=== PATIENT | female | born 1945 | race Caucasian/White ===

== ENCOUNTER 2016-02-24 17:09 | Outpatient (RCR) | payer MEDICARE ==
--- OUTSIDE RECORDS SUMMARY | 2015-12-02 11:14 | XMS REPORT | Continuity of Care Document ---
Author Author [facility] Organization [facility] Address Unknown Phone Unavailable Care Team Providers Care Communications Billing Analyst Name Role Phone Sebastian Ma PCP [phone] Source Comments Some departments are not documenting in the electronic medical record. If you do not see the information that you expected, contact Release of Information in the Health Information Management department at [phone] for further assistance in locating additional records.[facility] Active Allergies and Adverse Reactions No Known Allergies Current Medications Prescription Sig. Disp. Refills Start End Date Status Date atenolol (TENORMIN) 100 Take 100 mg by mouth Active mg tablet daily. amLODIPine (NORVASC) 5 mg Take 5 mg by mouth daily. Active tablet atorvastatin (LIPITOR) 20 Take 20 mg by mouth Active mg tablet daily. cholecalciferol (Vitamin Take 1,000 Units by mouth Active D3) (VITAMIN D-3) 1,000 daily. units tablet aspirin EC 81 mg tablet Take 81 mg by mouth Active daily. oxyCODone (ROXICODONE) 5 Take 1-2 Tabs by mouth 30 Tab 0 03/25/19 Active mg tablet every 6 hours as needed 14 for Pain Earliest Fill Date: 03/25/13 ondansetron (ZOFRAN) 4 mg Take 1 Tab by mouth every 30 Tab 2 03/25/19 Active tablet 8 hours as needed for 14 Nausea. metoclopramide HCl Take 1 Tab by mouth every 30 Tab 3 03/25/19 Active (REGLAN) 10 mg tablet 6 hours. 14 polyethylene glycol 3350 Take 17 g by mouth twice 3 Bottle 2 03/25/19 Active (GLYCOLAX; MIRALAX) 17 daily. 14 gram/dose powder senna/docusate Take 2 Tabs by mouth 30 Tab 3 03/25/19 Active (SENOKOT-S) 8.6/50 mg twice daily. 14 tablet traMADol (ULTRAM) 50 mg Take 1 Tab by mouth every 30 Tab 0 03/27/19 Active tablet 6 hours as needed for 14 Pain. Active Problems Problem Noted Date Colon cancer (HCC) 03/11/2013 Overview: Ms. Long is a 67 year old female who in January 2009 was found to have multiple polyps in the left colon on colonoscopy. In January 2009 she underwent left laparascopic colectomy with Dr. Rodriguez at [facility]. Pathology showed a tumor in the left colon 3 x 2.5 x 1.6cm revealing low grade well or moderately differentiated adenocarcinoma with invasion through the muscularis propria into the subserosa with invasion greater than 5mm beyond the border of the muscularis propria. Proximal and distal margins were uninvolved by tumor. None of the lymph nodes were positive for malignancy (0 of 18). PET was performed at that time with some increased activity along the suture line which was believed to be due to recent surgery. She has been followed by an Oncologist in [place] since that time. Recent PET scan on 12/31/12 has revealed a hypermetabolic lesion within the spleen on the anteromedial aspect. Recent colonoscopy was performed on 02/17/13 with evidence of a tubular adenoma in the cecum, confirmed by pathology. Recent CEA is elevated at 9.2 on 01/29/13. She was referred by Dr. Martin in [place] for further evaluation for elevated CEA and hypermetabolic lesion on PET with history of colon cancer. Social History Tobacco Use Types Packs/Day Years Used Date Never Smoker Smokeless Tobacco: Never Used Alcohol Use Drinks/Week oz/Week Comments Yes 14 Cans of 8.4 beer Last Filed Vital Signs Vital Sign Reading Time Taken Blood Pressure 143/64 04/02/2013 4:02 PM [employer] Pulse 74 04/02/2013 4:02 PM [employer] Temperature 36.7 C (98 F) 04/02/2013 4:02 PM [employer] Respiratory Rate - - Height 1.575 m (5' 2") 04/02/2013 4:02 PM [employer] Weight 74.934 kg (165 lb 3.2 oz) 04/02/2013 4:02 PM [employer] Body Mass Index 30.21 04/02/2013 4:02 PM [employer] Oxygen Saturation 98% 04/02/2013 4:02 PM [employer] Plan of Care Health Maintenance Due Date Last Done Comments Hepatitis C Screening 1945 Physical (Comprehensive) 1952 Exam Pertussis Vaccine 1956 Tetanus Vaccine 1962 Breast Cancer Screening 1985 Colorectal Cancer 11/16/1995 Screening Shingles Vaccine 2005 Osteoporosis Screening 2010 Prevnar/Pneumovax (#1) 2010 Influenza Vaccine 10/14/2015 Results from Last 3 Months Not on file
[2015-12-02 11:56] LABS: ALANINE AMINOTRANSFERASE 22 U/L (0-55); ANION GAP 9 MMOL/L (5-14); ASPARTATE AMINO TRANSFERASE 18 U/L (5-34); BILIRUBIN,TOTAL 0.5 MG/DL (0.1-1.0); BLOOD UREA NITROGEN 17 MG/DL (7-18); BUN/CREATININE RATIO 21; CALCIUM 9.5 MG/DL (8.5-10.1); CARBON DIOXIDE 25 MMOL/L (21-32); CHLORIDE 100 MMOL/L (98-107); CREATININE SERUM 0.81 MG/DL (0.60-1.30); GFR ESTIMATED > 60; GLUCOSE 82 MG/DL (70-105); POTASSIUM 4.3 MMOL/L (3.6-5.0); SODIUM 134 MMOL/L (135-145); TOTAL PROTEIN 7.1 G/DL (6.4-8.2)
[2015-12-02 12:27] LABS: BASOPHILS # (AUTO) 0.1 10^3/uL (0.0-0.1); BASOPHILS % (AUTO) 1 % (0-10); EOSINOPHILS # (AUTO) 0.3 10^3/uL (0.0-0.3); EOSINOPHILS % (AUTO) 3 % (0-10); LYMPHOCYTES # (AUTO) 2.1 X 10^3 (1.0-4.0); LYMPHOCYTES % (AUTO) 24 % (12-44); MEAN CORPUSCULAR HEMOGLOBIN 33 PG (25-34); MEAN CORPUSCULAR HGB CONC 34 G/DL (32-36); MEAN CORPUSCULAR VOLUME 95 FL (80-99); MEAN PLATELET VOLUME 11.2 FL (7.4-10.4); MONOCYTES # (AUTO) 1.4 X 10^3 (0.0-1.0); MONOCYTES % (AUTO) 16 % (0-12); NEUTROPHILS # (AUTO) 4.8 X 10^3 (1.8-7.8); NEUTROPHILS % (AUTO) 56 % (42-75); PLATELET COUNT 298 10^3/uL (130-400); RED BLOOD COUNT 4.36 10^6/uL (4.35-5.85); RED CELL DISTRIBUTION WIDTH 12.9 % (10.0-14.5); WHITE BLOOD COUNT 8.6 10^3/uL (4.3-11.0)
[2016-02-17 11:17] LABS: BASOPHILS # (AUTO) 0.1 10^3/uL (0.0-0.1); BASOPHILS % (AUTO) 1 % (0-10); EOSINOPHILS # (AUTO) 0.2 10^3/uL (0.0-0.3); EOSINOPHILS % (AUTO) 3 % (0-10); LYMPHOCYTES # (AUTO) 1.9 X 10^3 (1.0-4.0); LYMPHOCYTES % (AUTO) 25 % (12-44); MEAN CORPUSCULAR HEMOGLOBIN 33 PG (25-34); MEAN CORPUSCULAR HGB CONC 35 G/DL (32-36); MEAN CORPUSCULAR VOLUME 96 FL (80-99); MEAN PLATELET VOLUME 10.5 FL (7.4-10.4); MONOCYTES # (AUTO) 1.2 X 10^3 (0.0-1.0); MONOCYTES % (AUTO) 16 % (0-12); NEUTROPHILS # (AUTO) 4.2 X 10^3 (1.8-7.8); NEUTROPHILS % (AUTO) 55 % (42-75); PLATELET COUNT 305 10^3/uL (130-400); RED CELL DISTRIBUTION WIDTH 13.4 % (10.0-14.5); WHITE BLOOD COUNT 7.6 10^3/uL (4.3-11.0)
[2016-02-17 12:02] LABS: ALANINE AMINOTRANSFERASE 21 U/L (0-55); ALBUMIN 4.1 G/DL (3.2-4.5); ANION GAP 8 MMOL/L (5-14); ASPARTATE AMINO TRANSFERASE 21 U/L (5-34); BILIRUBIN,TOTAL 0.5 MG/DL (0.1-1.0); BLOOD UREA NITROGEN 13 MG/DL (7-18); BUN/CREATININE RATIO 17; CALCIUM 8.9 MG/DL (8.5-10.1); CARBON DIOXIDE 23 MMOL/L (21-32); CHLORIDE 104 MMOL/L (98-107); CREATININE SERUM 0.78 MG/DL (0.60-1.30); GFR ESTIMATED > 60; GLUCOSE 82 MG/DL (70-105); POTASSIUM 4.5 MMOL/L (3.6-5.0); SODIUM 135 MMOL/L (135-145); TOTAL PROTEIN 7.2 G/DL (6.4-8.2)
[~2016-02-24 17:09] MED LIST: AMLO5TAB2 PO; ASP81TEC PO; ATEN100T88 PO; ATEN1TAB3; ATR20T PO; CHOL400T43 PO; ESTR1TAB24; FLU TRIvalent (5 YOA+) 2016-17 (CANCER CTR) 0.5 ML IM ONE; GABA-488 PO; SIMV20TA3; VICODIN 5/325 PO
== END 2016-03-01 | disposition home or self-care (01) ==
LOC: ONC 17:09
PROVIDERS: ATTEND Internal Medicine Hematology & Oncology
DX: C78.89 Secondary malignant neoplasm of other digestive organs (principal); Z85.038 Personal history of other malignant neoplasm of large intestine; E55.9 Vitamin D deficiency, unspecified; Z90.49 Acquired absence of other specified parts of digestive tract; Z79.899 Other long term (current) drug therapy; Z45.2 Encounter for adjustment and management of vascular access device
CPT/HCPCS: 36591; 80053; 82378; 85025; 90471; 96523; 99213

== ENCOUNTER → 2016-05-30 | Outpatient (CLI) | payer MEDICARE ==
[~2016-05-30] MED LIST changes: -FLU TRIvalent (5 YOA+) 2016-17 (CANCER CTR) 0.5 ML IM ONE
--- NOTE | 2016-05-31 13:04 | ECHOCARDIOGRAPHY REPORT ---
PROCEDURE PHYSICIAN: JAYJAY MARIN DATE OF PROCEDURE: 05/30/2016 TWO DIMENSIONAL ECHOCARDIOGRAM REPORT PRIMARY PHYSICIAN: Dr. Ma OTHER PHYSICIAN: REFERRING PHYSICIAN: ORDERING PHYSICIAN: Dr. Marin INDICATION FOR THE PROCEDURE: 1. Shortness of breath. 2. Near syncope. MEASUREMENTS DERIVED VALUES LV DIAMETER (LAX) NORMALS NORMALS Diastolic 4.2 (3.6-5.2) Eject. Fract. (60%+/-6%) Systolic (2.3-3.9) Diastolic Vol. % Shortening (0.22-0.42) Systolic Vol. Aortic Root 2.7 IVS THICKNESS Diastolic 1.1 (0.6-1.1) LVPW THICKNESS Diastolic 1 (0.6-1.1) LA DIAMETER Systolic 4.1 (2.1-3.7) DESCRIPTION: Two-dimensional echocardiography shows normal global left ventricular systolic function without any regional wall motion abnormality. Aortic, mitral and tricuspid valve leaflets show good leaflet excursion. There is no significant pericardial effusion. There appears to be mild aortic valve sclerosis. Aortic valve appears to be trileaflet. Doppler imaging shows mild pulmonic and tricuspid regurgitation. Doppler imaging shows mild mitral regurgitation. There is no Doppler evidence of significant valvular stenosis. Pulmonary artery systolic pressure is estimated to be approximately 40 to 45 mmHg. Mild aortic regurgitation is seen on Doppler imaging. The left ventricular ejection fraction is approximately 60%. There is no evidence of significant intracardiac shunt on this transthoracic echocardiographic study. Inferior vena cava does appear to have inspiratory collapse. CONCLUSIONS: 1. Normal global left ventricular systolic function with an ejection fraction of approximately 60%. 2. Mild tricuspid, pulmonic, aortic and mitral regurgitation. 3. Mild aortic valve sclerosis without evidence of any significant valvular stenosis. 4. Pulmonary artery systolic pressure is estimated to be 40 to 45 mmHg. Job ID: [id number] Dictated Date: 05/30/2016 15:24:50 Finish Rolls Operator Date: 05/31/2016 12:56:44 / tbk
== END ==
LOC: CARD 11:31
PROVIDERS: ATTEND Internal Medicine Cardiovascular Disease
DX: R55 Syncope and collapse (principal); R06.02 Shortness of breath
CPT/HCPCS: 93306

== ENCOUNTER 2016-06-22 10:35 | Outpatient (RCR) | payer MEDICARE ==
--- OUTSIDE RECORDS SUMMARY | 2016-03-29 13:40 | XMS REPORT | Continuity of Care Document ---
Author Author [facility] Organization [facility] Address Unknown Phone Unavailable Care Team Providers Care Antiquer Name Role Phone Sebastian Ma PCP [phone] Source Comments Some departments are not documenting in the electronic medical record. If you do not see the information that you expected, contact Release of Information in the Health Information Management department at [phone] for further assistance in locating additional records.[facility] Active Allergies and Adverse Reactions No [...] left laparascopic colectomy with Dr. Rodriguez at [facility]. Pathology showed a tumor in the [...] has been followed by an Oncologist in [place] since that time. Recent PET scan on 12/31/12 has revealed a hypermetabolic lesion within the spleen on the anteromedial aspect. Recent colonoscopy was performed on 02/17/13 with evidence of a tubular adenoma in the cecum, confirmed by pathology. Recent CEA is elevated at 9.2 on 01/29/13. She was referred by Dr. Martin in [place] for further evaluation for elevated CEA and hypermetabolic lesion on PET with history of colon cancer. 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
[2016-05-11 10:56] LABS: BASOPHILS # (AUTO) 0.1 10^3/uL (0.0-0.1); BASOPHILS % (AUTO) 1 % (0-10); EOSINOPHILS # (AUTO) 0.1 10^3/uL (0.0-0.3); EOSINOPHILS % (AUTO) 1 % (0-10); LYMPHOCYTES # (AUTO) 2.1 X 10^3 (1.0-4.0); LYMPHOCYTES % (AUTO) 24 % (12-44); MEAN CORPUSCULAR HEMOGLOBIN 33 PG (25-34); MEAN CORPUSCULAR HGB CONC 34 G/DL (32-36); MEAN CORPUSCULAR VOLUME 96 FL (80-99); MEAN PLATELET VOLUME 10.4 FL (7.4-10.4); MONOCYTES # (AUTO) 1.4 X 10^3 (0.0-1.0); MONOCYTES % (AUTO) 16 % (0-12); NEUTROPHILS # (AUTO) 5.2 X 10^3 (1.8-7.8); NEUTROPHILS % (AUTO) 59 % (42-75); PLATELET COUNT 289 10^3/uL (130-400); RED BLOOD COUNT 4.22 10^6/uL (4.35-5.85); WHITE BLOOD COUNT 8.9 10^3/uL (4.3-11.0)
[2016-05-11 11:42] LABS: ALANINE AMINOTRANSFERASE 17 U/L (0-55); ALBUMIN 3.8 G/DL (3.2-4.5); ANION GAP 5 MMOL/L (5-14); ASPARTATE AMINO TRANSFERASE 18 U/L (5-34); BILIRUBIN,TOTAL 0.5 MG/DL (0.1-1.0); BLOOD UREA NITROGEN 17 MG/DL (7-18); BUN/CREATININE RATIO 20; CALCIUM 9.1 MG/DL (8.5-10.1); CARBON DIOXIDE 27 MMOL/L (21-32); CHLORIDE 102 MMOL/L (98-107); CREATININE SERUM 0.87 MG/DL (0.60-1.30); GFR ESTIMATED > 60; GLUCOSE 74 MG/DL (70-105); POTASSIUM 4.6 MMOL/L (3.6-5.0); SODIUM 134 MMOL/L (135-145); TOTAL PROTEIN 6.9 G/DL (6.4-8.2)
== END 2016-06-27 | disposition home or self-care (01) ==
LOC: ONC 10:35
PROVIDERS: ATTEND Internal Medicine Hematology & Oncology
DX: C78.89 Secondary malignant neoplasm of other digestive organs (principal); Z85.038 Personal history of other malignant neoplasm of large intestine; E55.9 Vitamin D deficiency, unspecified; Z90.49 Acquired absence of other specified parts of digestive tract; Z79.899 Other long term (current) drug therapy
CPT/HCPCS: 36591; 80053; 82306; 82378; 84443; 85025; 99213

== ENCOUNTER 2016-10-26 12:45 | Outpatient (RCR) | payer MEDICARE ==
[2016-08-03 11:44] LABS: BASOPHILS # (AUTO) 0.1 10^3/uL (0.0-0.1); BASOPHILS % (AUTO) 1 % (0-10); EOSINOPHILS # (AUTO) 0.2 10^3/uL (0.0-0.3); EOSINOPHILS % (AUTO) 2 % (0-10); LYMPHOCYTES % (AUTO) 21 % (12-44); MEAN CORPUSCULAR HEMOGLOBIN 34 PG (25-34); MEAN CORPUSCULAR HGB CONC 34 G/DL (32-36); MEAN CORPUSCULAR VOLUME 98 FL (80-99); MEAN PLATELET VOLUME 10.3 FL (7.4-10.4); MONOCYTES # (AUTO) 1.5 X 10^3 (0.0-1.0); MONOCYTES % (AUTO) 16 % (0-12); NEUTROPHILS # (AUTO) 5.6 X 10^3 (1.8-7.8); NEUTROPHILS % (AUTO) 60 % (42-75); PLATELET COUNT 289 10^3/uL (130-400); RED BLOOD COUNT 3.96 10^6/uL (4.35-5.85); RED CELL DISTRIBUTION WIDTH 12.6 % (10.0-14.5); WHITE BLOOD COUNT 9.4 10^3/uL (4.3-11.0)
[2016-08-03 11:58] LABS: ALANINE AMINOTRANSFERASE 17 U/L (0-55); ALBUMIN 3.7 GM/DL (3.2-4.5); ANION GAP 7 MMOL/L (5-14); ASPARTATE AMINO TRANSFERASE 18 U/L (5-34); BILIRUBIN,TOTAL 0.5 MG/DL (0.1-1.0); BLOOD UREA NITROGEN 15 MG/DL (7-18); BUN/CREATININE RATIO 19 (0-20); CALCIUM 9.1 MG/DL (8.5-10.1); CARBON DIOXIDE 25 MMOL/L (21-32); CHLORIDE 102 MMOL/L (98-107); CREATININE SERUM 0.79 MG/DL (0.60-1.30); GFR ESTIMATED > 60; GLUCOSE 82 MG/DL (70-105); HEMOLYSIS 13 (-100-29); ICTERUS 1.3 (-100-1.9); LIPEMIA 8 (-100-49); POTASSIUM 4.4 MMOL/L (3.6-5.0); SODIUM 134 MMOL/L (135-145)
== END 2016-11-01 | disposition home or self-care (01) ==
LOC: ONC 12:45
PROVIDERS: ATTEND Internal Medicine Hematology & Oncology
DX: Z79.899 Other long term (current) drug therapy; E55.9 Vitamin D deficiency, unspecified; Z85.038 Personal history of other malignant neoplasm of large intestine; C78.89 Secondary malignant neoplasm of other digestive organs; Z45.2 Encounter for adjustment and management of vascular access device; Z90.49 Acquired absence of other specified parts of digestive tract
CPT/HCPCS: 36591; 80053; 82378; 85025; 96523; 99213

== ENCOUNTER → 2016-12-12 | Outpatient (CLI) | payer MEDICARE ==
[2016-12-12 10:34] LABS: THYROID STIMULATING HORMONE 1.36 UIU/ML (0.35-4.94)
== END ==
LOC: LAB 12-11 11:35
DX: R53.83 Other fatigue (principal); E78.5 Hyperlipidemia, unspecified
CPT/HCPCS: 36415; 80061; 84443

== ENCOUNTER → 2016-12-27 | Outpatient (CLI) | payer MEDICARE ==
--- NOTE | 2016-12-27 15:15 | Diagnostic Imaging Report ---
PROCEDURE: MRI left joint lower extremity without contrast. TECHNIQUE: Multiplanar, multisequence non contrast-enhanced MRI of the left lower extremity was accomplished. INDICATION: Left knee pain. FINDINGS: There is no significant joint effusion. No popliteal cyst. The extensor mechanism appears intact. The ACL and PCL are intact. There is increased signal in the substance of the posterior horn of the medial meniscus extending to the posterior aspect of the body of the meniscus with suggestion of extension into the undersurface of the meniscus suggestive of a nondisplaced tear. The lateral meniscus is intact. There is slight edema deep to the MCL which may relate to minimal sprain. No interruption of the MCL fibers or significant tear is suggested. Lateral collateral ligament complex appear intact. Marginal osteophytes at the medial compartment are seen and there is suggestion of 50-75% cartilage thinning in the medial compartment. There is mild cartilage thinning in the lateral facet of the patella with subchondral focal edema in the patella seen. The cartilage in the lateral compartment is preserved. IMPRESSION: 1. Moderate degenerative changes in the medial compartment and minimal degenerative changes in the patellofemoral compartment. 2. There is mild edema deep to the MCL which could be secondary to irritation from the adjacent spur formation versus a mild sprain. No significant MCL tear. 3. Suggestion of a nondisplaced medial meniscus tear. Dictated by: Dictated on workstation # [id number]
== END ==
LOC: RAD 06:48
PROVIDERS: ATTEND Nurse Practitioner Family
DX: M17.12 Unilateral primary osteoarthritis, left knee (principal)
CPT/HCPCS: 73721

== ENCOUNTER 2017-02-07 12:48 | Outpatient (CLI) | payer MEDICARE ==
[~2017-02-07] VITALS: Ht 157.5 cm; Wt 75.3 kg
[2017-02-07] MEDS ORDERED: ASPI-586 PO (13:18)
[2017-02-07] MEDS ORDERED: ATEN50TA PO (13:18)
[2017-02-07] MEDS ORDERED: CALC-250 PO (13:18)
[2017-02-07] MEDS ORDERED: ASCO500T5 PO (13:18)
[2017-02-07] MEDS ORDERED: ATOR20TA66 PO (13:18)
== END 2017-02-07 13:35 ==
LOC: PREOP 12:48
PROVIDERS: ATTEND Orthopaedic Surgery
DX: Z01.818 Encounter for other preprocedural examination (principal); M23.204 Derangement of unspecified medial meniscus due to old tear or injury, left knee

== ENCOUNTER 2017-03-06 10:20 | Outpatient (RCR) | payer MEDICARE ==
[2016-12-12 09:52] LABS: BASOPHILS # (AUTO) 0.1 10^3/uL (0.0-0.1); BASOPHILS % (AUTO) 1 % (0-10); EOSINOPHILS # (AUTO) 0.2 10^3/uL (0.0-0.3); EOSINOPHILS % (AUTO) 4 % (0-10); HEMATOCRIT 42 % (35-52); HEMOGLOBIN 14.2 G/DL (11.5-16.0); LYMPHOCYTES # (AUTO) 1.8 X 10^3 (1.0-4.0); LYMPHOCYTES % (AUTO) 29 % (12-44); MEAN CORPUSCULAR HEMOGLOBIN 33 PG (25-34); MEAN CORPUSCULAR HGB CONC 34 G/DL (32-36); MEAN CORPUSCULAR VOLUME 96 FL (80-99); MEAN PLATELET VOLUME 11.2 FL (7.4-10.4); MONOCYTES # (AUTO) 0.9 X 10^3 (0.0-1.0); MONOCYTES % (AUTO) 15 % (0-12); NEUTROPHILS # (AUTO) 3.1 X 10^3 (1.8-7.8); NEUTROPHILS % (AUTO) 51 % (42-75); PLATELET COUNT 291 10^3/uL (130-400); RED BLOOD COUNT 4.34 10^6/uL (4.35-5.85); RED CELL DISTRIBUTION WIDTH 12.4 % (10.0-14.5); WHITE BLOOD COUNT 6.1 10^3/uL (4.3-11.0)
[2016-12-12 10:11] LABS: ALANINE AMINOTRANSFERASE 17 U/L (0-55); ALBUMIN 3.8 GM/DL (3.2-4.5); ALKALINE PHOSPHATASE 59 U/L (40-136); BILIRUBIN,TOTAL 0.5 MG/DL (0.1-1.0); BUN/CREATININE RATIO 29; CALCIUM 9.1 MG/DL (8.5-10.1); CARBON DIOXIDE 22 MMOL/L (21-32); CHLORIDE 106 MMOL/L (98-107); CREATININE SERUM 0.77 MG/DL (0.60-1.30); GFR ESTIMATED > 60; GLUCOSE 108 MG/DL (70-105); POTASSIUM 4.4 MMOL/L (3.6-5.0); SODIUM 137 MMOL/L (135-145); TOTAL PROTEIN 6.8 GM/DL (6.4-8.2)
[~2017-03-06 10:20] MED LIST changes: +ASCO500T5 PO; +ASPI-586 PO; +ATEN50TA PO; +ATOR20TA66 PO; +CALC-250 PO
== END 2017-03-12 | disposition home or self-care (01) ==
LOC: ONC 10:20
PROVIDERS: ATTEND Internal Medicine Hematology & Oncology
DX: C78.89 Secondary malignant neoplasm of other digestive organs (principal); Z85.038 Personal history of other malignant neoplasm of large intestine; E55.9 Vitamin D deficiency, unspecified; Z90.49 Acquired absence of other specified parts of digestive tract; Z79.899 Other long term (current) drug therapy
CPT/HCPCS: 36591; 80053; 82378; 85025; 96523; 99213

== ENCOUNTER 2017-03-26 05:39 | Outpatient (CLI) | payer MEDICARE ==
[~2017-03-26] VITALS: Ht 157.5 cm; Wt 75.3 kg
[2017-03-26] MEDS ORDERED: MONT10TA24 PO (09:42)
== END 2017-03-26 10:28 ==
LOC: PREOP 05:39
PROVIDERS: ATTEND Orthopaedic Surgery
DX: Z01.818 Encounter for other preprocedural examination (principal); M23.204 Derangement of unspecified medial meniscus due to old tear or injury, left knee

== ENCOUNTER 2017-03-28 06:27 | Day surgery (SDC) | payer MEDICARE ==
[~2017-03-28] VITALS: Ht 157.5 cm; Wt 75.3 kg
[~2017-03-28 06:27] MED LIST changes: +MONT10TA24 PO
[2017-03-28 06:45] VITALS: BP 182/81
[2017-03-28] MEDS ORDERED: ONDANSETRON 4 MG/2 ML (SDV) Z0FRAN ONE (06:58)
[2017-03-28] MEDS ORDERED: DEXAMETHASONE 10 MG/ML (DECADRON) 1 ML VIAL ONE (06:58)
[2017-03-28] MEDS ORDERED: fentaNYL INJECTION 100 MCG/2 ML AMP ONE (06:58)
[2017-03-28] MEDS ORDERED: MIDAZOLAM 2 MG/2 ML (VERSED) VIAL ONE (06:58)
[2017-03-28] MEDS ORDERED: proPOfol 200 MG/20 ML (DIPRIVAN) VIAL IV ONE (06:58)
[2017-03-28] MEDS ORDERED: ROCURONIUM 50 MG/5 ML (ZEMURON) VIAL IV ONE (06:58)
[2017-03-28] MEDS ORDERED: SEVOFLURANE (ULTANE) 15 ML INHAL SOLN ONE ×2 (06:58→07:57)
[2017-03-28] MEDS ORDERED: LIDOCAINE PF 2% 5 ML (XYLOCAINE) VIAL ONE (06:58)
[2017-03-28] MEDS ORDERED: NS (IVPB) 50 ML ONE (07:02)
[2017-03-28] MEDS ORDERED: ceFAZolin 1,000 MG (ANCEF) VIAL ONE (07:02)
[2017-03-28] MEDS ORDERED: morphine PF (DURAMORPH) 10 MG/10 ML AMP ONE (07:03)
[2017-03-28] MEDS ORDERED: BUPIVACAINE 0.25% 30 ML (SENSORCAINE) VIAL ONE (07:03)
[2017-03-28] MEDS ORDERED: LACTATED RINGERS 1,000 ML IV PRN (07:07)
[2017-03-28] MEDS ORDERED: ceFAZolin INJECTION 1,000 MG in NS (IVPB) 50 ML IV ONE (07:15)
--- NOTE | 2017-03-28 07:27 | Progress Note-Pre Operative ---
Pre-Operative Progress Note H&P Reviewed The H&P was reviewed, patient examined and no changes noted. Date Seen by Provider: Mar 28, 2017 Time Seen by Provider: 07:11 Date H&P Reviewed: Mar 28, 2017 Time H&P Reviewed: 07:26 Pre-Operative Diagnosis: left knee medial meniscus tear and chondromalacia JESSICA GILLETTE MD Mar 28, 2017 07:26
--- NOTE | 2017-03-28 07:28 | Progress Note-Post Operative ---
Post-Operative Progess Note Surgeon (s)/Grain Spouter (s) Surgeon JESSICA GILLETTE MD Grain Spouter: Mohinder Lemon Pre-Operative Diagnosis left knee medial meniscus tear and chondromalacia Post-Operative Diagnosis left knee medial meniscus tear and chondromalacia of medial femoral condyle, medial tibial plateau and patella Procedure & Operative Findings Date of Procedure 03/28/17 Procedure Performed/Findings left knee arthroscopic partial medial meniscectomy and chondroplasty of the medial femoral condyle, medial tibial plateau and patella Anesthesia Type GETA Estimated Blood Loss Estimated blood loss (mL): minimal Specimens/Packing Specimens Removed none Packing: none JESSICA GILLETTE MD Mar 28, 2017 07:28
[2017-03-28] MEDS ORDERED: HYDROcodone/APAP 7.5 MG/325 MG (LORTAB, LORCET PLUS) TABLET PO PRN (07:30)
[2017-03-28] MEDS ORDERED: morphine INJ 10 MG/ML 1ML (SYR OR VIAL) IVP PRN (08:15)
[2017-03-28] MEDS ORDERED: ONDANSETRON 4 MG/2 ML (SDV) Z0FRAN IVP PRN (08:15)
[2017-03-28 09:05] VITALS: BP 148/67
[2017-03-28 09:06] VITALS: BP 148/67
[2017-03-28] MEDS ORDERED: HYDR-34 PO (09:19)
[2017-03-28 09:35] VITALS: BP 159/60
[2017-03-28 10:05] VITALS: BP 170/62
--- NOTE | 2017-03-28 10:10 | Physical Therapy Ortho Eval ---
PT Orthopedic Evaluation Type of Surgery Knee Scope left side Prior Level of Function Current Living Status: Alone Locomotion (Upon Admit): Independent Established Durable Medical Eq: Front Wheeled Walker Subjective Subjective Patient laying in bed, no complaints of pain. Needs to get dressed and daughter can help her with that. Entry Into Home: Stairs With Railing Steps Into Home: 2 Motor Control Motor Control: Motor Control WNL ROM left knee extension +2 degrees, flexion 80 degrees Strength NT Transfer Transfers (B, C, W/C) (FIM): 5 Gait Gait Assistive Device: FWW Weight Bearing Status LLE: Weight Bearing/Tolerated Gait (FIM): 2 Distance: 100' Gait Level of Assist: 5 Summary/Comments Patient also went up and down 1 step using a rolling walker with CGA. Patient was also toileted once in the bathroom with SBA. Treatment Rendered Treatment: Therapeutic Exercises, Gait Train, Step Train Exercise Instruction: Quad Sets, Heel Slides, Ankle Pumps Assessment/Goals Goal Time Frame: 1 Visit Plan Treatment Plan: Discharge PT/Family Agrees to Plan: Yes Time Time In: 1035 Time Out: 1100 Total Billed Treatment Time: 25 Billed Treatment Time 1 visit EVL 15' GT 10' CAROLYN VALDEZ PT Mar 28, 2017 10:10
--- NOTE | 2017-03-28 14:40 | OPERATIVE REPORT ---
DATE OF SERVICE: 03/28/2017 PREOPERATIVE DIAGNOSES: 1. Left knee medial meniscal tear. 2. Left knee chondromalacia of the medial femoral condyle. 3. Left knee chondromalacia of the patella. POSTOPERATIVE DIAGNOSES: 1. Left knee medial meniscal tear. 2. Left knee chondromalacia of the medial femoral condyle. 3. Left knee chondromalacia of the patella. 4. Left knee chondromalacia of the medial tibial plateau. PROCEDURES: 1. Left knee arthroscopic partial medial meniscectomy. 2. Left knee arthroscopic chondroplasty medial femoral condyle. 3. Left knee arthroscopic chondroplasty of the medial tibial plateau. 4. Left knee arthroscopic chondroplasty of the patella. SURGEON: Kendall Gillette MD. LEADER ASSEMBLER: JUAN Huerta, who assisted throughout the procedure and closed the incisions. ANESTHESIA: General endotracheal by Ha Garber CRNA. TOURNIQUET TIME: Not applicable. ESTIMATED BLOOD LOSS: Minimal. DRAINS: None. COMPLICATIONS: None. POSTOPERATIVE PLAN: Routine arthroscopy protocol. The patient was transferred to the recovery room awake and in stable condition. STATEMENT OF MEDICAL NECESSITY: The patient is a 71-year-old female with complaints of progressively worsening left medial knee pain as well as anterior snapping and popping. She underwent an MRI, which revealed a medial meniscal tear. She has been treated with extensive injections as well as activity modifications without relief. She reported continued functional impairment and because of this, the patient elected to proceed with surgical intervention. Examination under anesthesia revealed range of motion of zero/zero/135 with a negative Simon, negative anterior and posterior drawer. No varus valgus laxity, negative pivot shift. Arthroscopic findings the patella demonstrated grade II chondral flap centrally in a 5 x 5 area. The trochlea demonstrated no gross chondral abnormalities. The medial and lateral gutters were clear. The lateral compartment demonstrated discoid meniscus, but no tearing noted. No chondral pathology was noted. The ACL and PCL were intact. The medial compartment demonstrated a parrot beak tear of the body of the meniscus involving approximately two-thirds of the body, which extended into the anterior 1/3 of the posterior horn. In addition of grade III chondral flaps and a 10 x 10 area of the femoral condyle centrally and an adjacent 8 x 8 area over the tibial plateau with grade III chondral flaps. PROCEDURE: After risks and benefits of procedure were discussed and questions were answered and informed consent was signed and placed in chart. The operative site was confirmed the preoperatively initialed by the surgeon. The patient was then transferred to the operating room. After adequate levels of general endotracheal anesthetic were obtained a timeout was called confirming the operative site. Examination under anesthesia was performed with above findings noted. Left lower extremity was prepped and draped in the usual sterile fashion. The knee joint was injected with 60 mL of fluid, and a standard inferolateral portal was placed for the arthroscope. Under direct visualization inferior medial portal was created. The meniscus and cruciates were carefully probed with the above findings noted. The unstable chondral flaps on the patella were debrided with the shaver back to a stable edge. The scope was redirected into the medial compartment. The unstable chondral flaps on the medial femoral condyle and medial tibial plateau were debrided with shaver back to a stable edge. The medial meniscus was debrided with a shaver and a biter removing approximately two-thirds of the body and one third of the posterior horn. This was carefully probed with no further tearing or instability noted. The knee was copiously irrigated. Portal sites were closed with 4-0 nylon in simple interrupted fashion. The knee was injected with Duramorph. The portal sites were infiltrated with plain Marcaine. A soft dressing was applied and the patient was transferred to the recovery room awake and in stable condition. Job ID: [id number] DocumentID: [id number] Dictated Date: 03/28/2017 08:08:39 Cement Worker Date: 03/28/2017 14:39:40 Dictated By: KENDALL GILLETTE MD
--- OUTSIDE RECORDS SUMMARY | 2017-03-30 08:24 | XMS REPORT | Clinical Summary ---
Author Author [facility] Organization [facility] Address Unknown Phone Unavailable Care Team Providers Care Special Police Officer Name Role Phone Yasmine Quinn RN Unavailable Unavailable Sebastian Ma MD PCP Segundo Blakely MD Unavailable Arlene Martínez RN Unavailable Unavailable Raya Hernandez RN Unavailable Unavailable Augustin Reeves RN Unavailable Unavailable Darrian Molina MD Unavailable Source Comments Some departments are not documenting in the electronic medical record. If you do not see the information that you expected, contact Release of Information in the Health Information Management department at [phone] for further assistance in locating additional records.[facility] Allergies No Known Allergies Current Medications Prescription Sig. [...] left laparascopic colectomy with Dr. Rodriguez at [facility]. Pathology showed a tumor in [...] has been followed by an Oncologist in [place] since that time. Recent PET scan on 12/31/12 has revealed a hypermetabolic lesion within the spleen on the anteromedial aspect. Recent colonoscopy was performed on 02/17/13 with evidence of a tubular adenoma in the cecum, confirmed by pathology. Recent CEA is elevated at 9.2 on 01/29/13. She was referred by Dr. Martin in [place] for further evaluation for elevated CEA and hypermetabolic lesion on PET with history of colon cancer. 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 Pulse 74 04/02/2013 4:02 PM 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 Temperature 36.7 C (98 F) 04/02/2013 4:02 PM 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 Respiratory Rate - - Oxygen Saturation 98% 04/02/2013 4:02 PM 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 Inhaled Oxygen - - Concentration Weight 74.9 kg (165 lb 3.2 oz) 04/02/2013 4:02 PM 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
--- OUTSIDE RECORDS SUMMARY | 2017-03-30 08:26 | XMS REPORT | Continuity of Care Document ---
Author Author [facility] Organization [facility] Address Unknown Phone Unavailable Allergies Active Description Code Type Severity Reaction Onset Reported/Identified Relationship to Patient Clinical Status Yes No Known Drug Allergies [id number] Drug Allergy Unknown N/A 02/07/2017 Medications There is no data. 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 JAGUAR COTO Ot Z85.038 PERSONAL HISTORY OF MALIGNANT NEOPLASM O JAGUAR COTO Ot Z90.49 ACQUIRED ABSENCE OF OTHER SPECIFIED PART 01/24/2010 Ot 211.3 01/24/2010 Ot V10.05 01/24/2010 Ot V45.3 01/24/2010 Ot V45.72 01/24/2010 Ot V76.51 01/23/2011 Ot V10.05 HX OF COLONIC MALIGNANCY 01/23/2011 Ot V76.51 SCREEN MAL NEOP-COLON 02/17/2013 MANOLO NOONAN MD Ot 211.3 BENIGN NEOPLASM LG BOWEL 02/17/2013 MANOLO NOONAN MD Ot 272.0 PURE HYPERCHOLESTEROLEM 02/17/2013 MANOLO NOONAN MD Ot 401.9 HYPERTENSION NOS 02/17/2013 MAONLO NOONAN MD Ot V10.05 HX OF COLONIC MALIGNANCY 04/11/2013 MANOLO NOONAN MD Ot 153.9 MALIGNANT DOUG COLON NOS 04/11/2013 MANOLO NOONAN MD Ot 197.8 SEC MAL DOUG GI NEC 07/15/2013 NNAMDI, BOBAN N Ot 197.8 SEC MAL DOUG GI NEC 07/15/2013 JAGUAR COTO N Ot V10.05 HX OF COLONIC MALIGNANCY 07/15/2013 JAGUAR COTO Ot V45.72 ACQRD ABSENCE INTESTINE - LARGE/SMALL 07/15/2013 JAGUAR COTO N Ot V58.11 ENCOUNTER FOR ANTINEOPLASTIC CHEMOTHERAP 07/15/2013 JAGUAR COTO Ot V58.69 OTH MED,LT,CURRENT USE 10/14/2013 JAGUAR COTO Ot 197.8 SEC MAL DOUG GI NEC 10/14/2013 JGAUAR COTO N Ot V10.05 HX OF COLONIC MALIGNANCY 10/14/2013 JAGUAR COTO N Ot V45.72 ACQRD ABSENCE INTESTINE - LARGE/SMALL 10/14/2013 JAGUAR COTO N Ot V58.11 ENCOUNTER FOR ANTINEOPLASTIC CHEMOTHERAP 10/14/2013 JAGUAR COTO Ot V58.69 OTH MED,LT,CURRENT USE 01/26/2014 SORAYA MANLEY GLOBAL SALES DIRECTOR Ot 197.8 01/26/2014 SORAYA MANLEY GLOBAL SALES DIRECTOR Ot V10.05 01/26/2014 SORAYA MANLEY GLOBAL SALES DIRECTOR Ot V45.72 01/26/2014 SORAYA MANLEY GLOBAL SALES DIRECTOR Ot V58.69 01/26/2014 SORAYA MANLEY GLOBAL SALES DIRECTOR Ot V58.81 01/28/2014 JAGUAR COTO N Ot 197.8 SEC MAL DOUG GI NEC 01/28/2014 JAGUAR COTO N Ot V10.05 HX OF COLONIC MALIGNANCY 01/28/2014 JAGUAR COTO N Ot V45.72 ACQRD ABSENCE INTESTINE - LARGE/SMALL 01/28/2014 JGAUAR COTO N Ot V58.69 OTH MED,LT,CURRENT USE 01/28/2014 NNAMDIJAGUAR N Ot V58.81 FIT/ADJ VASCULAR CATHETER 02/02/2014 SORAYA MANLEY GLOBAL SALES DIRECTOR Ot 197.8 02/02/2014 SORAYA MANLEY GLOBAL SALES DIRECTOR Ot V10.05 02/02/2014 SORAYA MANLEY GLOBAL SALES DIRECTOR Ot V45.72 02/02/2014 SORAYA MANLEY GLOBAL SALES DIRECTOR Ot V58.69 02/02/2014 SORAYA MANLEY GLOBAL SALES DIRECTOR Ot V58.81 02/10/2014 NNAMDI, JAGUAR N Ot 197.8 02/10/2014 NNAMDI, JAGUAR N Ot V10.05 02/10/2014 NNAMDI, BRANDINAN N Ot V45.72 02/10/2014 NNAMDI, JAGUAR N Ot V58.69 02/10/2014 NNAMDI, BOBAN N Ot V58.81 02/10/2014 NNAMDI, BOBMAR N Ot 197.8 02/10/2014 NNAMDI, JAGUAR N Ot V10.05 02/10/2014 NNAMDI, JAGUAR N Ot V45.72 02/10/2014 NNAMDI, JAGUAR N Ot V58.69 02/10/2014 NNAMDI, BOBMAR N Ot V58.81 02/10/2014 NNAMDI, BOBMAR N Ot 197.8 02/10/2014 NNAMDI, JAGUAR N Ot V10.05 02/10/2014 NNAMDI, JAGAUR N Ot V45.72 02/10/2014 NNAMDI, JAGUAR N Ot V58.69 02/10/2014 NNAMDI, JAGUAR N Ot V58.81 02/11/2014 NNAMDI, JAGUAR N Ot 197.8 02/11/2014 NNAMDI, JAGUAR N Ot V10.05 02/11/2014 NNAMDI, BOBMAR N Ot V45.72 02/11/2014 NNAMDI, JAGUAR N Ot V58.69 02/11/2014 NNAMDI, JAGUAR N Ot V58.81 05/11/2014 NNAMDIJAGUAR ROBLEDO N Ot 197.8 SEC MAL DOUG GI NEC 05/11/2014 JAGUAR COTO N Ot V10.05 HX OF COLONIC MALIGNANCY 05/11/2014 JAGUAR COTO N Ot V45.72 ACQRD ABSENCE INTESTINE - LARGE/SMALL 05/11/2014 JAGUAR COTO N Ot V58.69 OTH MED,LT,CURRENT USE 05/11/2014 NNAMDI, BOBAN N Ot V58.81 FIT/ADJ VASCULAR CATHETER 05/12/2014 Ot 153.9 05/12/2014 Ot 795.81 05/14/2014 Ot 197.8 05/14/2014 Ot V10.05 05/14/2014 Ot V45.72 05/14/2014 Ot V58.69 05/14/2014 Ot V58.81 05/15/2014 Ot 153.9 05/15/2014 Ot 795.81 05/22/2014 Ot 197.8 05/22/2014 Ot V10.05 05/22/2014 Ot V45.72 05/22/2014 Ot V58.69 05/22/2014 Ot V58.81 06/01/2014 NNAMDI, BOBAN N Ot 197.8 06/01/2014 NNAMDI, BOBAN N Ot V10.05 06/01/2014 NNAMDI, BOBAN N Ot V45.72 06/01/2014 NNAMDI, BOBAN N Ot V58.69 06/01/2014 NNAMDI, BOBAN N Ot V58.81 06/01/2014 NNAMDI, BOBAN N Ot 197.8 06/01/2014 NNAMDI, BOBAN N Ot V10.05 06/01/2014 NNAMDI, BOBAN N Ot V45.72 06/01/2014 NNAMDI, BOBAN N Ot V58.69 06/01/2014 NNAMDI, BOBAN N Ot V58.81 06/01/2014 NNAMDI, BOBAN N Ot 197.8 06/01/2014 NNAMDI, BOBAN N Ot V10.05 06/01/2014 NNAMDI, BOBAN N Ot V45.72 06/01/2014 NNAMDI, BOBAN N Ot V58.69 06/01/2014 NNAMDI, BOBAN N Ot V58.81 06/01/2014 NNAMDI, BOBAN N Ot 197.8 06/01/2014 NNAMDI, BOBAN N Ot V10.05 06/01/2014 NNAMDI, BOBAN N Ot V45.72 06/01/2014 NNAMDI, BOBAN N Ot V58.69 06/01/2014 NNAMDI, BOBAN N Ot V58.81 06/02/2014 NNAMDI, BOBAN N Ot 197.8 06/02/2014 NNAMDI, BOBAN N Ot V10.05 06/02/2014 NNAMDI, BOBAN N Ot V45.72 06/02/2014 NNAMDI, BOBAN N Ot V58.69 06/02/2014 NNAMDI, BOBAN N Ot V58.81 07/13/2014 NNAMDI, BOBAN N Ot 197.8 07/13/2014 NNAMDI, BOBAN N Ot V10.05 07/13/2014 NNAMDI, BOBAN N Ot V45.72 07/13/2014 NNAMDI, BOBAN N Ot V58.69 07/13/2014 NNAMDI, BOBAN N Ot V58.81 07/28/2014 NNAMDI, BOBAN N Ot 197.8 07/28/2014 NNAMDI, BOBAN N Ot V10.05 07/28/2014 NNAMDI, BOBAN N Ot V45.72 07/28/2014 NNAMDI, BOBAN N Ot V58.69 07/28/2014 NNAMDI, BOBAN N Ot V58.81 08/05/2014 ELTON MEJIA, ESSIE D Ot 268.9 08/05/2014 ELTON MEJIA, ESSIE D Ot 272.0 08/05/2014 ELTON MEJIA, ESSIE D Ot 401.9 08/30/2014 NNAMDI, BOBMAR N Ot 197.8 SEC MAL DOUG GI NEC 08/30/2014 NNAMDI, BRANDINAN N Ot V10.05 HX OF COLONIC MALIGNANCY 08/30/2014 NNAMDIBRANDINAN N Ot V45.72 ACQRD ABSENCE INTESTINE - LARGE/SMALL 08/30/2014 NNAMDI, BRANDINAN N Ot V58.69 OTH MED,LT,CURRENT USE 08/30/2014 NNAMDI, BOBAN N Ot V58.81 FIT/ADJ VASCULAR CATHETER 10/08/2014 NNAMDI, BOBAN N Ot 197.8 10/08/2014 NNAMDI, BOBAN N Ot V10.05 10/08/2014 NNAMDI, BOBAN N Ot V45.72 10/08/2014 NNAMDI, BOBAN N Ot V58.69 10/08/2014 NNAMDI, BOBAN N Ot V58.81 10/08/2014 NNAMDI, BOBAN N Ot 197.8 10/08/2014 NNAMDI, BOBAN N Ot V10.05 10/08/2014 NNAMDI, BOBAN N Ot V45.72 10/08/2014 NNAMDI, BOBAN N Ot V58.69 10/08/2014 NNAMDI, BOBAN N Ot V58.81 10/08/2014 NNAMDI, BOBAN N Ot 197.8 10/08/2014 NNAMDI, BOBAN N Ot V10.05 10/08/2014 NNAMDI, BOBAN N Ot V45.72 10/08/2014 NNAMDI, BOBAN N Ot V58.69 10/08/2014 NNAMDI, BOBAN N Ot V58.81 10/08/2014 NNAMDI, JAGUAR N Ot 197.8 10/08/2014 NNAMDI, JAGUAR N Ot V10.05 10/08/2014 NNAMDI, JAGUAR N Ot V45.72 10/08/2014 NNAMDI, JAGUAR N Ot V58.69 10/08/2014 NNAMDI, JAGUAR N Ot V58.81 10/09/2014 NNAMDI, JAGUAR N Ot 197.8 10/09/2014 NNAMDI, JAGUAR N Ot V10.05 10/09/2014 NNAMDI, JAGUAR N Ot V45.72 10/09/2014 NNAMDI, JAGUAR N Ot V58.69 10/09/2014 NNAMDI, JAGUAR N Ot V58.81 11/04/2014 NNAMDI, JAGUAR N Ot 197.8 11/04/2014 NNAMDI, JAGUAR N Ot V10.05 11/04/2014 NNAMDIJAGUAR ROBLEDO N Ot V45.72 11/04/2014 NNAMDIJAGUAR ROBLEDO N Ot V58.69 11/04/2014 NNAMDIJAGUAR ROBLEDO N Ot V58.81 11/06/2014 SORAYA MANLEY GLOBAL SALES DIRECTOR Ot 197.8 11/06/2014 SORAYA MANLEY GLOBAL SALES DIRECTOR Ot 268.9 11/06/2014 SORAYA MANLEY GLOBAL SALES DIRECTOR Ot 357.6 11/06/2014 SORAYA MANLEY GLOBAL SALES DIRECTOR Ot E849.7 11/06/2014 SORAYA MANLEY GLOBAL SALES DIRECTOR Ot E933.1 11/06/2014 SORAYA MANLEY GLOBAL SALES DIRECTOR Ot V10.05 11/06/2014 SORAYA MANLEY GLOBAL SALES DIRECTOR Ot V45.72 11/06/2014 SORAYA MANLEY GLOBAL SALES DIRECTOR Ot V58.69 11/11/2014 NNAMDI BRANDINMAR N Ot 197.8 SEC MAL DOUG GI NEC 11/11/2014 JAGUAR COTO N Ot V10.05 HX OF COLONIC MALIGNANCY 11/11/2014 JAGUAR COTO N Ot V45.72 ACQRD ABSENCE INTESTINE - LARGE/SMALL 11/11/2014 NNAMDI JAGUAR N Ot V58.69 OTH MED,LT,CURRENT USE 11/11/2014 NNAMDIJAGUAR ROBLEDO N Ot V58.81 FIT/ADJ VASCULAR CATHETER 11/11/2014 NNAMDI, BOBAN N Ot 197.8 11/11/2014 NNAMDI, BOBAN N Ot V10.05 11/11/2014 NNAMDI, BOBAN N Ot V45.72 11/11/2014 NNAMDI, BOBAN N Ot V58.69 11/11/2014 NNAMDI, BOBAN N Ot V58.81 11/11/2014 MANLEYSORAYA S GLOBAL SALES DIRECTOR Ot 197.8 11/11/2014 MANLEYSORAYA S GLOBAL SALES DIRECTOR Ot 268.9 11/11/2014 MANLEYLUISAAH S GLOBAL SALES DIRECTOR Ot 357.6 11/11/2014 MANLEY HILAH S GLOBAL SALES DIRECTOR Ot E849.7 11/11/2014 MANLEY HILAH S GLOBAL SALES DIRECTOR Ot E933.1 11/11/2014 MANLEYLUISAAH S GLOBAL SALES DIRECTOR Ot V10.05 11/11/2014 MANLEYSORAYA S GLOBAL SALES DIRECTOR Ot V45.72 11/11/2014 MANLEYSORAYA S GLOBAL SALES DIRECTOR Ot V58.69 01/26/2015 NNAMDI, BOBAN N Ot 197.8 01/26/2015 NNAMDI, BOBAN N Ot V10.05 01/26/2015 NNAMDI, BOBAN N Ot V45.72 01/26/2015 NNAMDI, BOBAN N Ot V58.69 01/26/2015 NNAMDI, BOBAN N Ot V58.81 02/16/2015 NNAMDI, BOBAN N Ot C78.89 02/16/2015 NNAMDI, BOBAN N Ot Z79.899 02/16/2015 NNAMDI, BOBAN N Ot Z85.038 02/16/2015 NNAMDI, BOBAN N Ot Z90.49 02/17/2015 NNAMDI, BOBAN N Ot C78.89 02/17/2015 NNAMDI, BOBAN N Ot Z79.899 02/17/2015 NNAMDI, BOBAN N Ot Z85.038 02/17/2015 NNAMDI, BOBAN N Ot Z90.49 03/08/2015 SARAN MEJIA, MANOLO De La Cruz Ot Z08 ENCNTR FOR FOLLOW-UP EXAM AFTER TRTMT FO 03/08/2015 SARAN MEJIA, MANOLO De La Cruz Ot Z85.038 PERSONAL HISTORY OF MALIGNANT NEOPLASM O 03/23/2015 NNAMDI, BOBAN N Ot 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 03/23/2015 JAGUAR COTO Ot Z79.899 OTHER CARE HOME (CURRENT) DRUG THERAPY 03/23/2015 JAGUAR OCTO Ot Z85.038 PERSONAL HISTORY OF MALIGNANT NEOPLASM O 03/23/2015 JAGUAR COTO Ot Z90.49 ACQUIRED ABSENCE OF OTHER SPECIFIED PART 03/23/2015 Ot V10.05 03/23/2015 Ot V45.72 03/23/2015 Ot V58.69 03/23/2015 Ot V67.09 03/23/2015 Ot V10.05 03/23/2015 Ot V45.72 03/23/2015 Ot V58.69 03/23/2015 Ot V67.09 03/23/2015 Ot 610.0 03/23/2015 Ot 795.81 03/23/2015 Ot V10.05 03/23/2015 Ot V45.72 03/23/2015 Ot V58.69 03/23/2015 Ot V67.09 03/23/2015 Ot 153.9 03/23/2015 Ot 782.62 03/23/2015 Ot V10.05 03/23/2015 Ot V45.72 03/23/2015 Ot V58.69 03/23/2015 Ot V67.09 03/23/2015 Ot 782.62 03/23/2015 Ot V10.05 03/23/2015 Ot V45.72 03/23/2015 Ot V58.69 03/23/2015 Ot V67.09 03/23/2015 Ot 719.45 03/23/2015 Ot 795.81 03/23/2015 Ot V10.05 03/23/2015 Ot V45.72 03/23/2015 Ot V58.66 03/23/2015 Ot V58.69 03/23/2015 Ot V67.09 03/23/2015 Ot 795.81 03/23/2015 Ot V10.05 03/23/2015 Ot V45.72 03/23/2015 Ot V58.66 03/23/2015 Ot V58.69 03/23/2015 Ot V67.09 03/23/2015 Ot 153.9 03/23/2015 Ot 795.81 03/23/2015 Ot V10.05 03/23/2015 Ot V45.72 03/23/2015 Ot V58.66 03/23/2015 Ot V58.69 03/23/2015 Ot V67.09 03/23/2015 Ot 241.0 03/23/2015 Ot 795.81 03/23/2015 Ot V10.05 03/23/2015 Ot V45.72 03/23/2015 Ot V58.66 03/23/2015 Ot V58.69 03/23/2015 Ot V67.09 03/23/2015 Ot 241.0 03/23/2015 Ot 564.00 03/23/2015 Ot 795.81 03/23/2015 Ot V10.05 03/23/2015 Ot V45.72 03/23/2015 Ot V58.66 03/23/2015 Ot V58.69 03/23/2015 Ot V67.09 03/23/2015 JAGUAR COTO N Ot 241.0 03/23/2015 NNAMDIJAGUAR ROBLEDO N Ot 611.79 03/23/2015 NNAMDIJAGUAR ROBLEDO N Ot 795.81 03/23/2015 NNAMDIJAGUAR ROBLEDO N Ot V10.05 03/23/2015 NNAMDIJAGUAR ROBLEDO N Ot V45.72 03/23/2015 NNAMDIJAGUAR ROBLEDO N Ot V58.66 03/23/2015 NNAMDIJAGUAR ROBLEDO N Ot V58.69 03/23/2015 NNAMDIJAGUAR ROBLEDO N Ot V67.09 03/23/2015 SORAYA MANLEY GLOBAL SALES DIRECTOR Ot 241.0 03/23/2015 MANLEYSORAYA Ordaz S GLOBAL SALES DIRECTOR Ot 795.81 03/23/2015 MANLEYSORAYA Ordaz S GLOBAL SALES DIRECTOR Ot V10.05 03/23/2015 MANLEYSORAYA Ordaz S GLOBAL SALES DIRECTOR Ot V45.72 03/23/2015 MANLEYLUISAAH S GLOBAL SALES DIRECTOR Ot V58.66 03/23/2015 MANLEYLUISAAH S GLOBAL SALES DIRECTOR Ot V58.69 03/23/2015 MANLEYSORAYA Ordaz S GLOBAL SALES DIRECTOR Ot V67.09 03/23/2015 SORAYA MANLEY S GLOBAL SALES DIRECTOR Ot 153.9 03/23/2015 SORAYA MANLEY S GLOBAL SALES DIRECTOR Ot 289.50 03/23/2015 SARAN MEJIA, MANOLO De La Cruz Ot 241.1 03/23/2015 SARAN MEJIA, MANOLO De La Cruz Ot V72.84 03/23/2015 SARAN MEJIA, MANOLO De La Cruz Ot 241.0 03/23/2015 BRANDIN COTOAN N Ot 197.8 03/23/2015 NNADMIJAGUAR ROBLEDO N Ot 241.0 03/23/2015 BRANDIN COTOAN N Ot V10.05 03/23/2015 NNAMDI, JAGUAR N Ot V45.72 03/23/2015 NNAMDI, JAGUAR N Ot V58.66 03/23/2015 NNAMDIJAGUAR ROBLEDO N Ot V58.69 03/23/2015 JAGUAR COTO N Ot V67.09 03/23/2015 SARAN MEJIA, MANOLO M Ot 521.00 03/23/2015 SARAN MEJIA, MANOLO M Ot V72.84 03/23/2015 MANLEYSORAYA S GLOBAL SALES DIRECTOR Ot 197.8 03/23/2015 MANLEY SORAYA S GLOBAL SALES DIRECTOR Ot 241.0 03/23/2015 MANLEY SORAYA S GLOBAL SALES DIRECTOR Ot V10.05 03/23/2015 MANLEY SORAYA S GLOBAL SALES DIRECTOR Ot V45.72 03/23/2015 MANLEY SORAYA S GLOBAL SALES DIRECTOR Ot V58.66 03/23/2015 MANLEY SORAYA S GLOBAL SALES DIRECTOR Ot V58.69 03/23/2015 MANLEY SORAYA S GLOBAL SALES DIRECTOR Ot V67.09 03/23/2015 MANLEY SORAYA S GLOBAL SALES DIRECTOR Ot 197.8 03/23/2015 MANLEY LUISAAH S GLOBAL SALES DIRECTOR Ot 241.0 03/23/2015 MANLEY, LUISAAH S GLOBAL SALES DIRECTOR Ot V10.05 03/23/2015 MANLEY SORAYA S GLOBAL SALES DIRECTOR Ot V45.72 03/23/2015 MANLEY LUISAAH S GLOBAL SALES DIRECTOR Ot V58.66 03/23/2015 MANLEY, LUISAAH S GLOBAL SALES DIRECTOR Ot V58.69 03/23/2015 MANLEY, LUISAAH S GLOBAL SALES DIRECTOR Ot V67.09 03/23/2015 MANLEY, LUISAAH S GLOBAL SALES DIRECTOR Ot 197.8 03/23/2015 MANLEY HILAH S GLOBAL SALES DIRECTOR Ot V10.05 03/23/2015 MANLEY HILAH S GLOBAL SALES DIRECTOR Ot V45.72 03/23/2015 MANLEY LUISAAH S GLOBAL SALES DIRECTOR Ot V58.69 03/23/2015 MANLEY LUISAAH S GLOBAL SALES DIRECTOR Ot 197.8 03/23/2015 MANLEY LUISAAH S GLOBAL SALES DIRECTOR Ot 275.2 03/23/2015 SORAYA MANLEY GLOBAL SALES DIRECTOR Ot V10.05 03/23/2015 SORAYA MANLEY S GLOBAL SALES DIRECTOR Ot V45.72 03/23/2015 SORAYA MANLEY S GLOBAL SALES DIRECTOR Ot V58.69 03/23/2015 SORAYA MANLEY S GLOBAL SALES DIRECTOR Ot 197.8 03/23/2015 SORAYA MANLEY S GLOBAL SALES DIRECTOR Ot V10.05 03/23/2015 SORAYA MANLEY S GLOBAL SALES DIRECTOR Ot V45.72 03/23/2015 MANLEYSORAYA Ordaz S GLOBAL SALES DIRECTOR Ot V58.69 03/23/2015 MANLEYSORAYA Ordaz S GLOBAL SALES DIRECTOR Ot 197.8 03/23/2015 MANLEYSORAYA Ordaz S GLOBAL SALES DIRECTOR Ot 357.6 03/23/2015 SORAYA MANLEY S GLOBAL SALES DIRECTOR Ot E849.7 03/23/2015 SORAYA MANLEY S GLOBAL SALES DIRECTOR Ot E933.1 03/23/2015 SORAYA MANLEY S GLOBAL SALES DIRECTOR Ot V10.05 03/23/2015 SORAYA MANLEY S GLOBAL SALES DIRECTOR Ot V45.72 03/23/2015 SORAYA MANLEY S GLOBAL SALES DIRECTOR Ot V58.69 03/23/2015 JAGUAR COTO Ot 153.9 03/23/2015 SORAYA MANLEY S GLOBAL SALES DIRECTOR Ot 197.8 03/23/2015 SORAYA MANLEY S GLOBAL SALES DIRECTOR Ot V10.05 03/23/2015 SORAYA MANLEY S GLOBAL SALES DIRECTOR Ot V45.72 03/23/2015 MANLEYSORAYA Ordaz S GLOBAL SALES DIRECTOR Ot V58.69 03/23/2015 MANLEYSORAYA Ordaz S GLOBAL SALES DIRECTOR Ot V58.81 03/23/2015 Ot 153.9 03/23/2015 Ot 795.81 03/23/2015 Ot 197.8 03/23/2015 Ot V10.05 03/23/2015 Ot V45.72 03/23/2015 Ot V58.69 03/23/2015 Ot V58.81 03/23/2015 ELTON MEJIA, ESSIE James Ot 268.9 03/23/2015 ELTON MEJIA, ESSIE James Ot 272.0 03/23/2015 ELTON MEJIA, ESSIE James Ot 401.9 03/23/2015 MANLEYSORAYA Ordaz S GLOBAL SALES DIRECTOR Ot 197.8 03/23/2015 MANLEYSORAYA S GLOBAL SALES DIRECTOR Ot 268.9 03/23/2015 SORAYA MANLEY GLOBAL SALES DIRECTOR Ot 357.6 03/23/2015 SORAYA MANLEY GLOBAL SALES DIRECTOR Ot E849.7 03/23/2015 SORAYA MANLEY GLOBAL SALES DIRECTOR Ot E933.1 03/23/2015 SORAYA MANLEY GLOBAL SALES DIRECTOR Ot V10.05 03/23/2015 SORAYA MANLEY GLOBAL SALES DIRECTOR Ot V45.72 03/23/2015 SORAYA MANLEY GLOBAL SALES DIRECTOR Ot V58.69 03/23/2015 NNAMDI, BOBAN N Ot C78.89 03/23/2015 NNAMDI, BOBAN N Ot Z79.899 03/23/2015 NNAMDI, BOBAN N Ot Z85.038 03/23/2015 NNAMDI, BOBAN N Ot Z90.49 03/23/2015 SARAN MEJIA, MANOLO M Ot Z01.818 03/23/2015 SARAN MEJIA, MANOLO M Ot Z85.038 03/23/2015 SARAN MEJIA, MANOLO De La Cruz Ot Z86.010 03/25/2015 NNAMDI, BOBAN N Ot C78.89 03/25/2015 NNAMDI, BOBAN N Ot Z79.899 03/25/2015 NNAMDI, BOBAN N Ot Z85.038 03/25/2015 NNAMDI, BOBAN N Ot Z90.49 03/25/2015 NNAMDI, BOBAN N Ot C18.9 04/14/2015 NNAMDI, BOBAN N Ot C18.9 04/22/2015 NNAMDI, BOBAN N Ot C18.9 05/10/2015 SARAN MEJIA, MANOLO De La Cruz Ot C18.9 MALIGNANT NEOPLASM OF COLON, UNSPECIFIED 05/10/2015 SARAN MEJIA, MANOLO M Ot Z01.818 ENCOUNTER FOR OTHER PREPROCEDURAL EXAMIN 05/11/2015 SARAN MEJIA, MANOLO M Ot C18.9 05/11/2015 SARAN MEJIA, MANOLO De La Cruz Ot Z01.818 05/11/2015 SARAN MEJIA, MANOLO M Ot C18.9 05/11/2015 SARAN MEJIA, MANOLO De La Cruz Ot Z01.818 05/20/2015 NNAMDI, BOBAN N Ot C78.89 05/20/2015 NNAMDI, BOBAN N Ot Z79.899 05/20/2015 NNAMDI, BOBAN N Ot Z85.038 05/20/2015 NNAMDIJAGUAR ROBLEDO N Ot Z90.49 05/21/2015 NNAMDIJAGUAR ROBLEDO N Ot C78.89 05/21/2015 NNAMDIJAGUAR ROBLEDO N Ot Z79.899 05/21/2015 NNAMDIJAGUAR ROBLEDO N Ot Z85.038 05/21/2015 JAGUAR COTO N Ot Z90.49 06/17/2015 ELTON MEJIA, ESSIE D Ot E78.2 MIXED HYPERLIPIDEMIA 06/17/2015 ELTON MEJIA, ESSIE D Ot R53.83 OTHER FATIGUE 06/22/2015 JAGUAR COTO N Ot 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 06/22/2015 JAGUAR COTO N Ot Z45.2 ENCOUNTER FOR ADJUSTMENT AND MANAGEMENT 06/22/2015 JAGUAR COTO N Ot Z79.899 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) DRUG THERAPY 06/22/2015 JAGUAR COTO N Ot Z85.038 PERSONAL HISTORY OF MALIGNANT NEOPLASM O 06/22/2015 JAGUAR COTO N Ot Z90.49 ACQUIRED ABSENCE OF OTHER SPECIFIED PART 06/23/2015 ELTON MEJIA, ESSIE D Ot E78.2 MIXED HYPERLIPIDEMIA 06/23/2015 ELTON MEJIA, ESSIE D Ot R53.83 OTHER FATIGUE 06/23/2015 ELTON MEJIA, ESSIE D Ot E78.2 MIXED HYPERLIPIDEMIA 06/23/2015 ELTON MEJIA, ESSIE D Ot R53.83 OTHER FATIGUE 06/23/2015 ELTON MEJIA ESSIE D Ot E78.2 MIXED HYPERLIPIDEMIA 06/23/2015 ELTON MEJIA, ESSIE D Ot R53.83 OTHER FATIGUE 06/23/2015 ELTON MEJIA, ESSIE D Ot E78.2 MIXED HYPERLIPIDEMIA 06/23/2015 ELTON MEJIA, ESSIE D Ot R53.83 OTHER FATIGUE 06/24/2015 JAGUAR COTO N Ot 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 06/24/2015 JAGUAR COTO N Ot Z45.2 ENCOUNTER FOR ADJUSTMENT AND MANAGEMENT 06/24/2015 JAGUAR COTO N Ot Z79.899 OTHER CARE HOME (CURRENT) DRUG THERAPY 06/24/2015 JAGUAR COTO N Ot Z85.038 PERSONAL HISTORY OF MALIGNANT NEOPLASM O 06/24/2015 JAGUAR COTO N Ot Z90.49 ACQUIRED ABSENCE OF OTHER SPECIFIED PART 07/02/2015 JAGUAR COTO Ot 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 07/02/2015 JAGUAR COTO Ot Z79.899 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) DRUG THERAPY 07/02/2015 JAGUAR COTO Ot Z85.038 PERSONAL HISTORY OF MALIGNANT NEOPLASM O 07/02/2015 JAGUAR COTO Ot Z90.49 ACQUIRED ABSENCE OF OTHER SPECIFIED PART 07/08/2015 ELTON MEJIA, ESSIE D Ot E78.2 MIXED HYPERLIPIDEMIA 07/08/2015 ELTON MEJIA, ESSIE D Ot R53.83 OTHER FATIGUE 07/21/2015 SORAYA MANLEY [employer] SALES DIRECTOR Ot 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 07/21/2015 SORAYA MANLEY [employer] SALES DIRECTOR Ot E55.9 VITAMIN D DEFICIENCY, UNSPECIFIED 07/21/2015 SORAYA MANLEY [employer] SAL[employer] DIRECTOR Ot G62.9 POLYNEUROPATHY, UNSPECIFIED 07/21/2015 SORAYA MANLEY [employer] SALES DIRECTOR Ot R97.0 ELEVATED CARCINOEMBRYONIC ANTIGEN [CEA] 07/21/2015 SORAYA MANLEY [employer]LO[employer] SALES DIRECTOR Ot Z08 ENCNTR FOR FOLLOW-UP EXAM AFTER TRTMT FO 07/21/2015 SORAYA MANLEY [employer] SALES DIRECTOR Ot Z79.899 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) DRUG THERAPY 07/21/2015 SORAYA MANLEY [employer] SALES DIRECTOR Ot Z85.038 PERSONAL HISTORY OF MALIGNANT NEOPLASM O 07/21/2015 SORAYA MANLEY [employer]LO[employer] SALES DIRECTOR Ot Z92.21 PERSONAL HISTORY OF ANTINEOPLASTIC CHEMO 07/23/2015 SORAYA MANLEY [employer] SALES DIRECTOR Ot 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 07/23/2015 SORAYA MANLEY [employer] SALES DIRECTOR Ot E55.9 VITAMIN D DEFICIENCY, UNSPECIFIED 07/23/2015 SORAYA MANLEY [employer]LO[employer] SALES DIRECTOR Ot G62.9 POLYNEUROPATHY, UNSPECIFIED 07/23/2015 SORAYA MANLEY GLOBAL SALES DIRECTOR Ot R97.0 ELEVATED CARCINOEMBRYONIC ANTIGEN [CEA] 07/23/2015 SORAYA MANLEY S GLOBAL SALES DIRECTOR Ot Z08 ENCNTR FOR FOLLOW-UP EXAM AFTER TRTMT FO 07/23/2015 SORAYA MANLEY GLO[employer] SALES DIRECTOR Ot Z79.899 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) DRUG THERAPY 07/23/2015 SORAYA MANLEY [employer] SALES DIRECTOR Ot Z85.038 PERSONAL HISTORY OF MALIGNANT NEOPLASM O 07/23/2015 SORAYA MANLEY [employer] SALES DIRECTOR Ot Z92.21 PERSONAL HISTORY OF ANTINEOPLASTIC CHEMO 08/06/2015 NNAMDIJAGUAR ROBLEDO N Ot 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 08/06/2015 JAGUAR COTO N Ot E55.9 VITAMIN D DEFICIENCY, UNSPECIFIED 08/06/2015 JAGUAR COTO N Ot Z79.899 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) DRUG THERAPY 08/06/2015 JAGUAR COTO N Ot Z85.038 PERSONAL HISTORY OF MALIGNANT NEOPLASM O 08/06/2015 JAGUAR COTO N Ot Z90.49 ACQUIRED ABSENCE OF OTHER SPECIFIED PART 08/19/2015 JAGUAR COTO N Ot 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 08/19/2015 JAGUAR COTO N Ot E55.9 VITAMIN D DEFICIENCY, UNSPECIFIED 08/19/2015 JAGUAR COTO N Ot Z79.899 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) DRUG THERAPY 08/19/2015 JAGUAR COTO N Ot Z85.038 PERSONAL HISTORY OF MALIGNANT NEOPLASM O 08/19/2015 JAGURA COTO N Ot Z90.49 ACQUIRED ABSENCE OF OTHER SPECIFIED PART 09/29/2015 JAGUAR COTO N Ot 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 09/29/2015 JAGUAR COTO N Ot E55.9 VITAMIN D DEFICIENCY, UNSPECIFIED 09/29/2015 JAGUAR COTO N Ot Z79.899 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) DRUG THERAPY 09/29/2015 JAGUAR COTO N Ot Z85.038 PERSONAL HISTORY OF MALIGNANT NEOPLASM O 09/29/2015 JAGUAR COTO N Ot Z90.49 ACQUIRED ABSENCE OF OTHER SPECIFIED PART 10/22/2015 JAGUAR COTO N Ot 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 10/22/2015 JAGUAR COTO N Ot E55.9 VITAMIN D DEFICIENCY, UNSPECIFIED 10/22/2015 JAGUAR COTO N Ot Z45.2 ENCOUNTER FOR ADJUSTMENT AND MANAGEMENT 10/22/2015 JAGUAR COTO N Ot Z79.899 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) DRUG THERAPY 10/22/2015 JAGUAR COTO N Ot Z85.038 PERSONAL HISTORY OF MALIGNANT NEOPLASM O 10/22/2015 JAGUAR COTO N Ot Z90.49 ACQUIRED ABSENCE OF OTHER SPECIFIED PART 11/22/2015 JAGUAR COTO Ot 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 11/22/2015 JAGUAR COTO Ot E55.9 VITAMIN D DEFICIENCY, UNSPECIFIED 11/22/2015 JAGUAR COTO Ot Z45.2 ENCOUNTER FOR ADJUSTMENT AND MANAGEMENT 11/22/2015 JAGUAR COTO Ot Z79.899 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) DRUG THERAPY 11/22/2015 JAGUAR COTO Ot Z85.038 PERSONAL HISTORY OF MALIGNANT NEOPLASM O 11/22/2015 JAGUAR COTO N Ot Z90.49 ACQUIRED ABSENCE OF OTHER SPECIFIED PART 12/03/2015 JAGUAR COTO N Ot 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 12/03/2015 JAGUAR COTO Ot E55.9 VITAMIN D DEFICIENCY, UNSPECIFIED 12/03/2015 JAGUAR COTO N Ot Z79.899 OTHER CARE HOME (CURRENT) DRUG THERAPY 12/03/2015 JAGUAR COTO Ot Z85.038 PERSONAL HISTORY OF MALIGNANT NEOPLASM O 12/03/2015 JAGUAR COTO N Ot Z90.49 ACQUIRED ABSENCE OF OTHER SPECIFIED PART 01/12/2016 JAGUAR COTO N Ot 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 01/12/2016 JAGUAR COTO Ot E55.9 VITAMIN D DEFICIENCY, UNSPECIFIED 01/12/2016 JAGUAR COTO N Ot Z79.899 OTHER CARE HOME (CURRENT) DRUG THERAPY 01/12/2016 JAGUAR COTO N Ot Z85.038 PERSONAL HISTORY OF MALIGNANT NEOPLASM O 01/12/2016 JAGUAR COTO N Ot Z90.49 ACQUIRED ABSENCE OF OTHER SPECIFIED PART 01/14/2016 JAGUAR COTO N Ot 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 01/14/2016 JAGUAR COTO N Ot E55.9 VITAMIN D DEFICIENCY, UNSPECIFIED 01/14/2016 JAGUAR COTO N Ot Z79.899 OTHER CARE HOME (CURRENT) DRUG THERAPY 01/14/2016 JAGUAR COTO N Ot Z85.038 PERSONAL HISTORY OF MALIGNANT NEOPLASM O 01/14/2016 JAGUAR COTO N Ot Z90.49 ACQUIRED ABSENCE OF OTHER SPECIFIED PART 03/01/2016 JAGUAR COTO N Ot 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 03/01/2016 JAGUAR COTO Ot E55.9 VITAMIN D DEFICIENCY, UNSPECIFIED 03/01/2016 JAGUAR COTO N Ot Z45.2 ENCOUNTER FOR ADJUSTMENT AND MANAGEMENT 03/01/2016 JAGUAR COTO N Ot Z79.899 OTHER CARE HOME (CURRENT) DRUG THERAPY 03/01/2016 JAGUAR COTO N Ot Z85.038 PERSONAL HISTORY OF MALIGNANT NEOPLASM O 03/01/2016 JAGUAR COTO N Ot Z90.49 ACQUIRED ABSENCE OF OTHER SPECIFIED PART 03/02/2016 JAGUAR COTO N Ot 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 03/02/2016 JAGUAR COTO N Ot E55.9 VITAMIN D DEFICIENCY, UNSPECIFIED 03/02/2016 JAGUAR COTO Ot Z45.2 ENCOUNTER FOR ADJUSTMENT AND MANAGEMENT 03/02/2016 JAGUAR COTO N Ot Z79.899 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) DRUG THERAPY 03/02/2016 JAGUAR COTO N Ot Z85.038 PERSONAL HISTORY OF MALIGNANT NEOPLASM O 03/02/2016 JAGUAR COTO N Ot Z90.49 ACQUIRED ABSENCE OF OTHER SPECIFIED PART 03/30/2016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
--- NOTE | 2017-03-30 15:00 | HISTORY AND PHYSICAL ---
DATE OF SERVICE: 03/18/2017 DATE OF ADMISSION: 03/28/2017. This will be for outpatient surgery on 03/28/2017 for left knee arthroscopy. HISTORY OF PRESENT ILLNESS: The patient is a 71-year-old female with a 3 month history of left knee pain. She reports she has noted and pain in the medial aspect of her knee since that point. She denies prior history of knee problems. 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 She has undergone treatment with multiple injections without relief. Due to functional impairment and failure to improve with conservative measures, the patient elected to proceed with surgical intervention. REVIEW OF SYSTEMS: No chest pain or shortness of breath. No dysuria. PAST MEDICAL HISTORY: Allergic rhinitis, fatigue, hyperlipidemia, hypertension, insomnia, irritable bowel syndrome, menopause, osteoporosis, rheumatoid arthritis, colon cancer, neuropathy and TMJ. PAST SURGICAL HISTORY: , hysterectomy, splenectomy, breast surgery, cataracts. FAMILY HISTORY: Diabetes, hypertension, coronary artery disease. PRIMARY CARE PROVIDER: Dr. Ma. MEDICATIONS: Alendronate, amlodipine, atenolol, atorvastatin, calcium, gabapentin, triamcinolone, Tylenol, vitamin B. ALLERGIES: No known allergies. SOCIAL HISTORY: The patient denies alcohol and tobacco use. PHYSICAL EXAMINATION: GENERAL: Well developed, well-nourished, no acute distress. HEENT: Normocephalic, atraumatic. Pupils are equal, round, reactive to light. Oropharynx is clear. NECK: Supple, no lymphadenopathy. LUNGS: Clear to auscultation bilaterally. HEART: Regular rate and rhythm. ABDOMEN: Soft, nontender, nondistended. EXTREMITIES: Left knee demonstrates moderate effusion. She is tender along the medial joint compartment. Marked pain medially with Al's. No varus valgus laxity. Negative anterior, posterior drawer, negative pivot shift. The patient ambulates with an antalgic gait. 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 PLAN: Left knee arthroscopy with partial medial meniscectomy and chondroplasty. The risks, benefits, options, ramifications and recovery have been discussed at length with the patient. She understands and wishes to proceed. Job ID: [id number] DocumentID: [id number] Dictated Date: 03/22/2017 12:39:08 Detective And Intelligence Analyst Date: 03/22/2017 13:06:41 Dictated By: JESSICA GILLETTE MD <Dictated by JESSICA GILLETTE MD> <Electronically signed by JESSICA GILLETTE MD> 03/22/17 1519
== END 2017-03-28 10:10 | disposition home or self-care (01) ==
LOC: SDC 06:27
PROVIDERS: ATTEND Orthopaedic Surgery
DX: M23.8X2 Other internal derangements of left knee (principal); M22.42 Chondromalacia patellae, left knee; I10 Essential (primary) hypertension; E78.5 Hyperlipidemia, unspecified; G62.9 Polyneuropathy, unspecified; Z85.038 Personal history of other malignant neoplasm of large intestine; Z79.899 Other long term (current) drug therapy
CPT/HCPCS: 87081

== ENCOUNTER → 2017-06-25 | Outpatient (CLI) | payer MEDICARE ==
[~2017-06-25] MED LIST changes: +HYDR-34 PO
[2017-06-25 09:42] LABS: BASOPHILS # (AUTO) 0.1 10^3/uL (0.0-0.1); BASOPHILS % (AUTO) 1 % (0-10); EOSINOPHILS # (AUTO) 0.2 10^3/uL (0.0-0.3); EOSINOPHILS % (AUTO) 3 % (0-10); HEMATOCRIT 41 % (35-52); LYMPHOCYTES # (AUTO) 1.7 X 10^3 (1.0-4.0); LYMPHOCYTES % (AUTO) 29 % (12-44); MEAN CORPUSCULAR HEMOGLOBIN 33 PG (25-34); MEAN CORPUSCULAR HGB CONC 35 G/DL (32-36); MEAN CORPUSCULAR VOLUME 96 FL (80-99); MEAN PLATELET VOLUME 10.8 FL (7.4-10.4); MONOCYTES # (AUTO) 0.9 X 10^3 (0.0-1.0); MONOCYTES % (AUTO) 15 % (0-12); NEUTROPHILS # (AUTO) 2.9 X 10^3 (1.8-7.8); NEUTROPHILS % (AUTO) 51 % (42-75); PLATELET COUNT 270 10^3/uL (130-400); RED BLOOD COUNT 4.21 10^6/uL (4.35-5.85); RED CELL DISTRIBUTION WIDTH 12.9 % (10.0-14.5); WHITE BLOOD COUNT 5.7 10^3/uL (4.3-11.0)
[2017-06-25 09:54] LABS: ALANINE AMINOTRANSFERASE 15 U/L (0-55); ALBUMIN 3.9 GM/DL (3.2-4.5); ALKALINE PHOSPHATASE 67 U/L (40-136); BILIRUBIN,TOTAL 0.8 MG/DL (0.1-1.0); BUN/CREATININE RATIO 20; CALCIUM 9.2 MG/DL (8.5-10.1); CARBON DIOXIDE 24 MMOL/L (21-32); CHLORIDE 104 MMOL/L (98-107); CHOLESTEROL 194 MG/DL (< 200); CREATININE SERUM 0.75 MG/DL (0.60-1.30); GFR ESTIMATED > 60; GLUCOSE 89 MG/DL (70-105); HDL CHOLESTEROL 53 MG/DL (40-60); POTASSIUM 4.4 MMOL/L (3.6-5.0); SODIUM 135 MMOL/L (135-145); TOTAL PROTEIN 6.8 GM/DL (6.4-8.2); TRIGLYCERIDES 129 MG/DL (<150); VLDL CHOLESTEROL 26 MG/DL (5-40)
== END ==
LOC: LAB 09:12
DX: E78.2 Mixed hyperlipidemia (principal); R53.83 Other fatigue
CPT/HCPCS: 36415; 80053; 80061; 84443; 85025

== ENCOUNTER → 2017-06-25 | Outpatient (CLI) | payer MEDICARE ==
[~2017-06-25] MED LIST changes: +DIATRIZOATE MEGLUM/SODIUM 37% 120 ML (GASTROGRAFIN) PO ONE; +IOHEXOL 350 MG/ML 100 ML (OMNIPAQUE 350) VIAL IV ONE; +NS 250 ML (IVPB) BAG IV ONE
--- NOTE | 2017-06-25 12:08 | Diagnostic Imaging Report ---
PROCEDURE: CT chest, abdomen, and pelvis with contrast. TECHNIQUE: Multiple contiguous axial images were obtained through the chest, abdomen, and pelvis after the administration of intravenous contrast. INDICATION: Colon carcinoma, followup. Comparison is made with prior CT abdomen and pelvis from 01/07/2013. CT CHEST: The right chest wall port is in place. No axillary lymphadenopathy is detected. No mediastinal or hilar lymphadenopathy is identified. No pericardial or pleural fluid is identified. No pulmonary infiltrates, nodules or masses are seen. There is some linear atelectasis or scarring in the left lower lobe and right upper lobe. IMPRESSION: No evidence of thoracic lymphadenopathy or pulmonary metastatic disease. CT ABDOMEN AND PELVIS: No discrete liver mass is identified. The gallbladder is unremarkable. There are some calcifications involving the pancreas but no noncalcified mass is seen. The spleen is surgically absent. There are two rounded masses in the left upper quadrant in the splenic bed, largest 2.8 cm in size. These most likely represent small splenules or splenosis. Small and large bowel loops are normal caliber. There is no ascites. No pelvic lymphadenopathy is identified. The bladder is unremarkable. No adrenal mass is identified. The kidneys are unremarkable. Aorta is heavily calcified but nonaneurysmal. No central retroperitoneal or mesenteric lymphadenopathy is identified. IMPRESSION: 1. No evidence of abdominal or pelvic lymphadenopathy or metastatic disease. No acute features detected. Dictated by: Dictated on workstation # [id number]
== END ==
LOC: RAD 09:40
PROVIDERS: ATTEND Internal Medicine Hematology & Oncology
DX: C18.6 Malignant neoplasm of descending colon (principal); C78.89 Secondary malignant neoplasm of other digestive organs; E55.9 Vitamin D deficiency, unspecified; Z90.81 Acquired absence of spleen
CPT/HCPCS: 71260; 74177

== ENCOUNTER 2017-07-10 10:34 | Outpatient (RCR) | payer MEDICARE ==
[2017-06-25 09:35] LABS: BASOPHILS # (AUTO) 0.1 10^3/uL (0.0-0.1); BASOPHILS % (AUTO) 1 % (0-10); EOSINOPHILS # (AUTO) 0.2 10^3/uL (0.0-0.3); EOSINOPHILS % (AUTO) 3 % (0-10); HEMATOCRIT 41 % (35-52); LYMPHOCYTES # (AUTO) 1.7 X 10^3 (1.0-4.0); LYMPHOCYTES % (AUTO) 29 % (12-44); MEAN CORPUSCULAR HEMOGLOBIN 33 PG (25-34); MEAN CORPUSCULAR HGB CONC 35 G/DL (32-36); MEAN CORPUSCULAR VOLUME 96 FL (80-99); MEAN PLATELET VOLUME 10.8 FL (7.4-10.4); MONOCYTES # (AUTO) 0.9 X 10^3 (0.0-1.0); MONOCYTES % (AUTO) 15 % (0-12); NEUTROPHILS # (AUTO) 2.9 X 10^3 (1.8-7.8); NEUTROPHILS % (AUTO) 51 % (42-75); PLATELET COUNT 270 10^3/uL (130-400); RED BLOOD COUNT 4.21 10^6/uL (4.35-5.85); RED CELL DISTRIBUTION WIDTH 12.9 % (10.0-14.5); WHITE BLOOD COUNT 5.7 10^3/uL (4.3-11.0)
[2017-06-25 10:01] LABS: SODIUM 135 MMOL/L (135-145)
[2017-06-25 10:02] LABS: ALANINE AMINOTRANSFERASE 15 U/L (0-55); ALBUMIN 3.9 GM/DL (3.2-4.5); ALKALINE PHOSPHATASE 67 U/L (40-136); BILIRUBIN,TOTAL 0.8 MG/DL (0.1-1.0); BUN/CREATININE RATIO 20; CALCIUM 9.2 MG/DL (8.5-10.1); CARBON DIOXIDE 24 MMOL/L (21-32); CHLORIDE 104 MMOL/L (98-107); CREATININE SERUM 0.75 MG/DL (0.60-1.30); GFR ESTIMATED > 60; GLUCOSE 89 MG/DL (70-105); POTASSIUM 4.4 MMOL/L (3.6-5.0); TOTAL PROTEIN 6.8 GM/DL (6.4-8.2)
[~2017-07-10 10:34] MED LIST changes: -DIATRIZOATE MEGLUM/SODIUM 37% 120 ML (GASTROGRAFIN) PO ONE; -IOHEXOL 350 MG/ML 100 ML (OMNIPAQUE 350) VIAL IV ONE; -NS 250 ML (IVPB) BAG IV ONE
== END 2017-07-16 | disposition home or self-care (01) ==
LOC: ONC 10:34
PROVIDERS: ATTEND Internal Medicine Hematology & Oncology
DX: C78.89 Secondary malignant neoplasm of other digestive organs (principal); Z85.038 Personal history of other malignant neoplasm of large intestine; E55.9 Vitamin D deficiency, unspecified; Z90.49 Acquired absence of other specified parts of digestive tract; Z79.899 Other long term (current) drug therapy; Z45.2 Encounter for adjustment and management of vascular access device
CPT/HCPCS: 36591; 80053; 82378; 85025; 96523; 99213

== ENCOUNTER 2017-08-16 12:58 | Outpatient (RCR) | payer MEDICARE ==
[2017-09-03] MEDS ORDERED: METO200T48 PO (10:37)
[2017-09-03] MEDS ORDERED: TRAZ-190 PO (10:37)
[2017-10-17] MEDS ORDERED: TRAM50TA2 PO (09:00)
== END 2017-09-11 | disposition home or self-care (01) ==
LOC: ONC 12:58
PROVIDERS: ATTEND Internal Medicine Hematology & Oncology
DX: C78.89 Secondary malignant neoplasm of other digestive organs (principal); Z85.038 Personal history of other malignant neoplasm of large intestine; E55.9 Vitamin D deficiency, unspecified; Z90.49 Acquired absence of other specified parts of digestive tract; Z79.899 Other long term (current) drug therapy; Z45.2 Encounter for adjustment and management of vascular access device
CPT/HCPCS: 96523

== ENCOUNTER 2017-09-03 05:34 | Outpatient (CLI) | payer MEDICARE ==
[~2017-09-03] VITALS: Ht 157.5 cm; Wt 73.9 kg
[2017-09-03] MEDS ORDERED: METO200T48 PO (10:37)
[2017-09-03] MEDS ORDERED: TRAZ-190 PO (10:37)
== END 2017-09-03 10:41 | disposition home or self-care (01) ==
LOC: PREOP 05:34
PROVIDERS: ATTEND Surgery
DX: Z01.818 Encounter for other preprocedural examination (principal)

== ENCOUNTER 2017-09-10 06:49 | Day surgery (SDC) | payer MEDICARE ==
[~2017-09-10] VITALS: Ht 157.5 cm; Wt 73.9 kg
[~2017-09-10 06:49] MED LIST changes: +METO200T48 PO; +TRAZ-190 PO
--- OUTSIDE RECORDS SUMMARY | 2017-09-10 06:51 | XMS REPORT | Clinical Summary ---
Author Author [facility] Organization [facility] Address Unknown Phone Unavailable Care Team Providers Care Cost Estimator Name Role Phone Yasmine Quinn RN Unavailable [...] in the Health Information Management department at [phone] for further assistance in locating additional records.[facility] Allergies No Known Allergies Current Medications [...] left laparascopic colectomy with Dr. Rodriguez at [facility]. Pathology showed a tumor in [...] has been followed by an Oncologist in [place] since that time. Recent PET scan on 12/31/12 has revealed a hypermetabolic lesion within the spleen on the anteromedial aspect. Recent colonoscopy was performed on 02/17/13 with evidence of a tubular adenoma in the cecum, confirmed by pathology. Recent CEA is elevated at 9.2 on 01/29/13. She was referred by Dr. Martin in [place] for further evaluation for elevated CEA and [...] Taken Blood Pressure 143/64 04/02/2013 4:02 PM BOAT DIESEL MOTOR MECHANIC Pulse 74 04/02/2013 4:02 PM BOAT DIESEL MOTOR MECHANIC Temperature 36.7 C (98 F) 04/02/2013 4:02 PM BOAT DIESEL MOTOR MECHANIC Respiratory Rate - - Oxygen Saturation 98% 04/02/2013 4:02 PM BOAT DIESEL MOTOR MECHANIC Inhaled Oxygen - - Concentration Weight 74.9 kg (165 lb 3.2 oz) 04/02/2013 4:02 PM BOAT DIESEL MOTOR MECHANIC Height 157.5 cm (5' 2") 04/02/2013 4:02 PM BOAT DIESEL MOTOR MECHANIC Body Mass Index 30.22 04/02/2013 4:02 PM BOAT DIESEL MOTOR MECHANIC Plan of Treatment Health Maintenance Due Date Last Done Comments HEPATITIS C SCREENING 1945 PHYSICAL (COMPREHENSIVE) 1952 EXAM PERTUSSIS VACCINE 1956 TETANUS VACCINE 1962 BREAST CANCER SCREENING 1985 COLORECTAL CANCER 11/16/1995 SCREENING SHINGLES RECOMBINANT 11/16/1995 VACCINE (1 of 2) OSTEOPOROSIS SCREENING 2010 PNEUMONIA (PCV13/PPSV23) 2010 VACCINES (1 of 2 - PCV13) INFLUENZA VACCINE 11/12/2017 Results Not on filefrom Last 3 Months
[2017-09-10] MEDS ORDERED: NS IV 500 ML 500 ML ONE (07:06)
[2017-09-10] MEDS ORDERED: NS IV 500 ML 500 ML IV PRN (07:25)
[2017-09-10] MEDS ORDERED: fentaNYL INJECTION 100 MCG/2 ML AMP IVP PRN (07:30)
[2017-09-10 07:31] VITALS: BP 171/72
[2017-09-10] MEDS ORDERED: MIDAZOLAM 2 MG/2 ML (VERSED) VIAL ONE ×3 (07:41)
[2017-09-10] MEDS ORDERED: fentaNYL INJECTION 100 MCG/2 ML AMP ONE (07:42)
--- NOTE | 2017-09-10 07:44 | Conscious Sedation/ASA ---
Conscious Sedation Pre-Proced Time Reviewed: 07:44 ASA Class: 2 Airway Mallampati Classification: ([place] appropriate class) I. II. III, IV Lungs Heart ASA score ASA 1: a normal healthy patient ASA 2: a patient with a mild systemic disease (mid diabetes, controlled hypertension, obesity ASA 3: a patient with a severe systemic disease that limits activity (angina , COPD, prior Myocardial infarction) ASA 4: a patient with an incapacitating disease that is a constant threat to life (CHF, renal failure) ASA 5: a moribund patient not expected to survive 24 hrs. (ruptured aneurysm) ASA 6: a declared brain patient whose organs are being harvested. For emergent operations, add the letter E after the classification Grade 1 Sedation Plan: Discussed options with patient/fam Note The patient is an appropriate candidate to undergo the planned procedure, sedation, and anesthesia. The patient immediately re-assessed prior to indication. MANOLO NOONAN MD Sep 10, 2017 7:44 am
--- NOTE | 2017-09-10 07:44 | History & Physicial ---
History of Present Illness History of Present Illness Reason for visit/HPI To undergo surveillance colonoscopy Date of Admission 09/10/17 Date Seen by Provider: Sep 10, 2017 Time Seen by Provider: 07:42 I consulted on this patient on 09/10/17 07:41 Attending Physician Manolo Blevins MD Admitting Physician Sebastian Ma MD Consult Allergies and Home Medications Allergies Coded Allergies: No Known Drug Allergies (Unverified , 02/07/17) Home Medications Ascorbic Acid 500 Mg Tab.chew, 500 MG PO DAILY, (Reported) Aspirin 81 Mg Tablet.dr, 81 MG PO DAILY, (Reported) Atorvastatin Calcium 20 Mg Tablet, 20 MG PO DAILY, (Reported) Cholecalciferol 5,000 Unit Capsule, 5,000 UNIT PO DAILY, (Reported) Metoprolol Succinate 200 Mg Tab.er.24h, 200 MG PO DAILY, (Reported) Trazodone HCl 100 Mg Tablet, 50 MG PO HS, (Reported) Patient Home Medication List Home Medication List Reviewed: Yes Past Wycobhh-Adcbrt-Hqmjgh Hx Patient Social History Marrital Status: Employed/Student: retired Alcohol Use: Denies Use Recreational Drug Use: No Smoking Status: Never a Smoker Recent Foreign Travel: No Contact w/other who traveled: No Recent Hopitalizations: No Immunizations Up To Date Tetanus Booster (TDap): Unknown Pediatric: No Date of Pneumonia Vaccine: Feb 10, 2013 Date of Influenza Vaccine: Oct 23, 2016 Seasonal Allergies Seasonal Allergies: Yes (MILD) Surgeries Yes Bowel Surgery, Section, Hysterectomy Respiratory No Cardiovascular Yes High Cholesterol, Hypertension Neurological Yes Neuropathy Reproductive System Hx Reproductive Disorders: No Sexually Transmitted Disease: No HIV/AIDS: No Gastrointestinal No Musculoskeletal Yes Arthritis Endocrine History of Endocrine Disorders: No HEENT Loss of Vision: Bilateral Hearing Impairment: Denies Cancer Yes Colon Did You Recieve Any Treatments: Yes Type of Treatment: Chemotherapy, Surgical Intervention Blood Transfusions Adverse Reaction to a Blood Tr: No (N/A) Constitutional: no symptoms reported EENTM: no symptoms reported Respiratory: no symptoms reported Cardiovascular: no symptoms reported Gastrointestinal: no symptoms reported Genitourinary: no symptoms reported Musculoskeletal: no symptoms reported Skin: no symptoms reported Psychiatric/Neurological: No Symptoms Reported Physical Exam Vital Signs Vital Signs - First Documented 09/10/17 07:31 Temp 98.2 Pulse 59 Resp 18 B/P (MAP) 171/72 (105) Pulse Ox 96 O2 Delivery Room Air Capillary Refill : Height, Weight, BMI Height: 5'2.00" Weight: 163lbs. 0.0oz. 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 For surveillance colonoscopy Admission Diagnosis Admission Status: Other (Outpt Proc) MANOLO BLEVINS MD Sep 10, 2017 7:44 am
[2017-09-10] MEDS: MIDAZOLAM 2 MG/2 ML (VERSED) VIAL IVP PRN ×2 (07:48→07:52)
--- NOTE | 2017-09-10 08:09 | Discharge Inst-Simple/Standard ---
Discharge Inst-Standard Discharge Medications New, Converted or Re-Newed RX: Other Patient Instructions/Follow Up Plan of Care/Instructions/FU: Please have my office schedule removal of infusport as an outpatient Activity as Tolerated: Yes Discharge Diet: No Restrictions MANOLO NOONAN MD Sep 10, 2017 8:09 am
[2017-09-10 08:10] VITALS: BP 154/67
--- NOTE | 2017-09-10 08:14 | Endo Procedure Record ---
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 She came in for surveillance colonoscopy informed consent was obtained after reviewing the procedure in detail. Description of the procedure: She was placed in left lateral to this position and her vital signs were monitored. Conscious sedation was achieved using Versed and fentanyl. Digital rectal examination was unremarkable. The colonoscope was then introduced into the rectum and advanced all the The cecum. The quality of bowel preparation was excellent The scope was then withdrawn slowly and the mucosa examined in a systematic fashion. There was no abnormality She tolerated the procedure well and was taken back to the nursing area in a stable condition. Impression: Carcinoma of the descending colon in 2008. Normal colonoscopy. Recommend repeating in 3 years. Copy Copies To 1: JAGUAR COTO Copies To 2: ESSIE CONDE MD, XAVIER M MD Sep 10, 2017 8:14 am
[2017-09-10 08:40] VITALS: BP 174/62
[2017-09-10 08:55] VITALS: BP 174/62
== END 2017-09-10 08:55 | disposition home or self-care (01) ==
LOC: ENDO 06:49
PROVIDERS: ATTEND Surgery
DX: Z08 Encounter for follow-up examination after completed treatment for malignant neoplasm (principal); Z85.038 Personal history of other malignant neoplasm of large intestine; I10 Essential (primary) hypertension; E78.00 Pure hypercholesterolemia, unspecified; G62.9 Polyneuropathy, unspecified

== ENCOUNTER 2017-10-17 06:15 | Day surgery (SDC) | payer MEDICARE ==
--- NOTE | 2017-10-16 10:28 | History & Physicial ---
History of Present Illness History of Present Illness Reason for visit/HPI to undergo removal of an Jkijdo-t-Apzt, that has not been used. Previous colon cancer requiring resection and adjuvant chemotherapy. Date of Admission 10/17/17 Date Seen by Provider: Oct 16, 2017 Time Seen by Provider: 10:26 I consulted on this patient on 10/16/17 10:25 Attending Physician Manolo Blevins MD Admitting Physician Sebastian Ma MD Consult Allergies and Home Medications Allergies Coded Allergies: No Known Drug Allergies (Unverified , 02/07/17) Home Medications Ascorbic Acid 500 Mg Tab.chew, 500 MG PO DAILY, (Reported) Aspirin 81 Mg Tablet.dr, 81 MG PO DAILY, (Reported) Atorvastatin Calcium 20 Mg Tablet, 20 MG PO DAILY, (Reported) Cholecalciferol 5,000 Unit Capsule, 5,000 UNIT PO DAILY, (Reported) Metoprolol Succinate 200 Mg Tab.er.24h, 200 MG PO HS, (Reported) Trazodone HCl 100 Mg Tablet, 50 MG PO HS, (Reported) Patient Home Medication List Home Medication List Reviewed: Yes Past Pmygtnp-Nntoaf-Lhhobr Hx Patient Social History Employed/Student: retired Recent Hopitalizations: No Immunizations Up To Date Tetanus Booster (TDap): Unknown Pediatric: No Date of Pneumonia Vaccine: Feb 10, 2013 Date of Influenza Vaccine: Oct 23, 2016 Seasonal Allergies Seasonal Allergies: Yes (MILD) Surgeries Yes Bowel Surgery, Section, Hysterectomy Respiratory No Cardiovascular Yes High Cholesterol, Hypertension Neurological Yes Neuropathy Reproductive System Hx Reproductive Disorders: No Sexually Transmitted Disease: No HIV/AIDS: No Gastrointestinal No Musculoskeletal Yes Arthritis Endocrine History of Endocrine Disorders: No HEENT Loss of Vision: Bilateral Hearing Impairment: Denies Cancer Yes Colon Did You Recieve Any Treatments: Yes Type of Treatment: Chemotherapy, Surgical Intervention Blood Transfusions Adverse Reaction to a Blood Tr: No (N/A) Review of Systems Constitutional: no symptoms reported EENTM: no symptoms reported Respiratory: no symptoms reported Cardiovascular: no symptoms reported Gastrointestinal: no symptoms reported Genitourinary: no symptoms reported Musculoskeletal: no symptoms reported Skin: no symptoms reported Psychiatric/Neurological: No Symptoms Reported Physical Exam Vital Signs Capillary Refill : Height, Weight, BMI Height: 5'2.00" Weight: 163lbs. 0.0oz. 73.223243lp; 29.8 BMI Method: General Appearance: No Apparent Distress Neck: Normal Inspection Respiratory: Lungs Clear Cardiovascular: Regular Rate, Rhythm Gastrointestinal: Non Tender, Soft Neurologic/Psychiatric: Alert, Oriented x3 Skin: Warm/Dry Assessment/Plan Assessment and Plan lady with previous colon cancer. Adjuvant therapy completed. For removal of the Nronbt-t-Qgrx Admission Diagnosis Admission Status: Other (Same Day Surgery) MANOLO BLEVINS MD Oct 16, 2017 10:28
[~2017-10-17] VITALS: Ht 157.5 cm; Wt 73.9 kg
--- OUTSIDE RECORDS SUMMARY | 2017-10-17 06:19 | XMS REPORT | Clinical Summary ---
Author Author [facility] Organization [facility] Address Unknown Phone Unavailable Care Team Providers Care Compactor Driver Name Role Phone Yasmine Quinn RN Unavailable [...] in the Health Information Management department at [phone] for further assistance in locating additional records.[facility] Allergies No Known Allergies Current Medications [...] left laparascopic colectomy with Dr. Rodriguez at [facility]. Pathology showed a tumor in the left [...] has been followed by an Oncologist in [place] since that time. Recent PET scan on 12/31/12 has revealed a hypermetabolic lesion within the spleen on the anteromedial aspect. Recent colonoscopy was performed on 02/17/13 with evidence of a tubular adenoma in the cecum, confirmed by pathology. Recent CEA is elevated at 9.2 on 01/29/13. She was referred by Dr. Martin in [place] for further evaluation for elevated CEA and [...] Taken Blood Pressure 143/64 04/02/2013 4:02 PM CYTOTECHNOLOGIST Pulse 74 04/02/2013 4:02 PM CYTOTECHNOLOGIST Temperature 36.7 C (98 F) 04/02/2013 4:02 PM CYTOTECHNOLOGIST Respiratory Rate - - Oxygen Saturation 98% 04/02/2013 4:02 PM CYTOTECHNOLOGIST Inhaled Oxygen - - Concentration Weight 74.9 kg (165 lb 3.2 oz) 04/02/2013 4:02 PM CYTOTECHNOLOGIST Height 157.5 cm (5' 2") 04/02/2013 4:02 PM CYTOTECHNOLOGIST Body Mass Index 30.22 04/02/2013 4:02 PM CYTOTECHNOLOGIST Plan of Treatment Health Maintenance Due Date [...]
--- OUTSIDE RECORDS SUMMARY | 2017-10-17 06:23 | XMS REPORT | Continuity of Care Document ---
Author Author [facility] Organization [facility] Address Unknown Phone Unavailable Allergies Active Description Code Type Severity Reaction Onset Reported/Identified Relationship to Patient Clinical Status Yes No Known Drug Allergies [id number] Drug Allergy Unknown N/A 02/07/2017 Medications There is no data. 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 JAGUAR COTO Ot Z85.038 [...] NOONAN MD Ot 401.9 HYPERTENSION NOS 02/17/2013 MANOLO NOONAN MD Ot V10.05 HX OF COLONIC MALIGNANCY 04/11/2013 MANOLO NOONAN MD Ot 153.9 MALIGNANT DOUG COLON NOS 04/11/2013 MANOLO NOONAN MD Ot 197.8 SEC MAL DOUG GI NEC 07/15/2013 NNAMDI, BOBAN N Ot 197.8 SEC MAL DOUG GI NEC 07/15/2013 JAGUAR COTO Ot V10.05 HX OF COLONIC MALIGNANCY 07/15/2013 JAGUAR COTO Ot V45.72 ACQRD ABSENCE INTESTINE - LARGE/SMALL 07/15/2013 JAGUAR COTO Ot V58.11 ENCOUNTER FOR ANTINEOPLASTIC CHEMOTHERAP 07/15/2013 JAGUAR COTO Ot V58.69 OTH MED,LT,CURRENT USE 10/14/2013 JAGUAR COTO Ot 197.8 SEC MAL DOUG GI NEC 10/14/2013 JAGUAR COTO N Ot V10.05 HX OF COLONIC MALIGNANCY 10/14/2013 JAGUAR COTO N Ot V45.72 ACQRD ABSENCE INTESTINE - LARGE/SMALL 10/14/2013 JAGUAR COTO Ot V58.11 ENCOUNTER FOR ANTINEOPLASTIC CHEMOTHERAP 10/14/2013 JAGUAR COTO Ot V58.69 OTH MED,LT,CURRENT USE 01/26/2014 SORAYA MANLEY SIDE LASTER STAPLE Ot 197.8 01/26/2014 SORAYA MANLEY SIDE LASTER STAPLE Ot V10.05 01/26/2014 SORAYA MANLEY SIDE LASTER STAPLE Ot V45.72 01/26/2014 SORAYA MANLEY SIDE LASTER STAPLE Ot V58.69 01/26/2014 SORAYA MANLEY SIDE LASTER STAPLE Ot V58.81 01/28/2014 JAGUAR COTO N Ot 197.8 SEC MAL DOUG GI NEC 01/28/2014 JAGUAR COTO N Ot V10.05 HX OF COLONIC MALIGNANCY 01/28/2014 JAGUAR COTO Brent Ot V45.72 ACQRD ABSENCE INTESTINE - LARGE/SMALL 01/28/2014 JAGUAR COTO N Ot V58.69 OTH MED,LT,CURRENT USE 01/28/2014 NNAMDIJAGUAR N Ot V58.81 FIT/ADJ VASCULAR CATHETER 02/02/2014 SORAYA MANLEY SIDE LASTER STAPLE Ot 197.8 02/02/2014 SORAYA MANLEY SIDE LASTER STAPLE Ot V10.05 02/02/2014 SORAYA MANLEY SIDE LASTER STAPLE Ot V45.72 02/02/2014 SORAYA MANLEY SIDE LASTER STAPLE Ot V58.69 02/02/2014 SORAYA MANLEY SIDE LASTER STAPLE Ot V58.81 02/10/2014 NNAMDIJAGUAR ROBLEDO N Ot 197.8 02/10/2014 NNAMDI, JAGUAR N Ot V10.05 02/10/2014 NNAMDI, BOBAN N Ot V45.72 02/10/2014 NNAMDI, JAGUAR N Ot V58.69 02/10/2014 NNAMDI, BOBMAR N Ot V58.81 02/10/2014 NNAMDI, JAGUAR N Ot 197.8 02/10/2014 NNAMDI, JAGUAR N Ot V10.05 02/10/2014 NNAMDI, JAGUAR N Ot V45.72 02/10/2014 NNAMDI, JAGUAR N Ot V58.69 02/10/2014 NNAMDI, BOBMAR N Ot V58.81 02/10/2014 NNAMDI, JAGUAR N Ot 197.8 02/10/2014 NNAMDI, JAGUAR N Ot V10.05 02/10/2014 NNAMDI, JAGUAR N Ot V45.72 02/10/2014 NNAMDI, JAGUAR N Ot V58.69 02/10/2014 NNAMDI, JAGUAR N Ot V58.81 02/11/2014 NNAMDI, JAGUAR N Ot 197.8 02/11/2014 NNAMDI, JAGUAR N Ot V10.05 02/11/2014 NNAMDI, BOBMAR N Ot V45.72 02/11/2014 NNAMDI, JAGUAR N Ot V58.69 02/11/2014 NNAMDIJAGUAR ROBLEDO N Ot V58.81 05/11/2014 NNAMDIJAGUAR ROBLEDO N Ot 197.8 SEC MAL DOUG GI NEC 05/11/2014 JAGUAR COTO N Ot V10.05 HX OF COLONIC MALIGNANCY 05/11/2014 JAGUAR COTO N Ot V45.72 ACQRD ABSENCE INTESTINE - LARGE/SMALL 05/11/2014 JAGUAR COTO N Ot V58.69 OTH MED,LT,CURRENT USE 05/11/2014 NNAMDI BOBAN N Ot V58.81 FIT/ADJ VASCULAR CATHETER [...] NNAMDI, BOBAN N Ot V45.72 07/13/2014 NNAMDI, JAGUAR N Ot V58.69 07/13/2014 NNAMDI, JAGUAR N Ot V58.81 07/28/2014 NNAMDI, JAGUAR N Ot 197.8 07/28/2014 NNAMDI, JAGUAR N Ot V10.05 07/28/2014 NNAMDI, JAGUAR N Ot V45.72 07/28/2014 NNAMDI, JAGUAR N Ot V58.69 07/28/2014 NNAMDI, JAGUAR N Ot V58.81 08/05/2014 ELTON MEJIA, ESSIE D Ot 268.9 08/05/2014 ELTON MEJIA, ESSIE D Ot 272.0 08/05/2014 ELTON MEJIA, ESSIE D Ot 401.9 08/30/2014 NNAMDI, JAGUAR N Ot 197.8 SEC MAL DOUG GI NEC 08/30/2014 NNAMDI, JAGUAR N Ot V10.05 HX OF COLONIC MALIGNANCY 08/30/2014 NNAMDIJAGUAR ROBLEDO N Ot V45.72 ACQRD ABSENCE INTESTINE - LARGE/SMALL 08/30/2014 NNAMDIJAGUAR N Ot V58.69 OTH MED,LT,CURRENT USE 08/30/2014 NNAMDI, BOBAN N Ot V58.81 FIT/ADJ VASCULAR CATHETER 10/08/2014 NNAMDI, JAGUAR N Ot 197.8 10/08/2014 NNAMDI, JAGUAR N Ot V10.05 10/08/2014 NNAMDI, JAGUAR N Ot V45.72 10/08/2014 NNAMDI, JAGUAR N Ot V58.69 10/08/2014 NNAMDI, JAGUAR N Ot V58.81 10/08/2014 NNAMDI, JAGUAR N Ot 197.8 10/08/2014 NNAMDI, JAGUAR N Ot V10.05 10/08/2014 NNAMDI, BOBMAR N Ot V45.72 10/08/2014 NNAMDI, BOBMAR N Ot V58.69 10/08/2014 NNAMDI, BOBMAR N Ot V58.81 10/08/2014 NNAMDI, BOBAN N Ot 197.8 10/08/2014 NNAMDI, BOBAN N Ot V10.05 10/08/2014 NNAMDI, BOBAN N Ot V45.72 10/08/2014 NNAMDI, BOBAN N Ot V58.69 10/08/2014 NNAMDIJAGUAR ROBLEDO N Ot V58.81 10/08/2014 NNAMDIJAGUAR ROBLEDO N Ot 197.8 10/08/2014 NNAMDIJAGUAR ROBLEDO N Ot V10.05 10/08/2014 NNAMDI, JAGUAR N Ot V45.72 10/08/2014 NNAMDI, JAGUAR N Ot V58.69 10/08/2014 NNAMDI, JAGUAR N Ot V58.81 10/09/2014 NNAMDIJAGUAR ROBLEDO N Ot 197.8 10/09/2014 NNAMDIJAGUAR ROBLEDO N Ot V10.05 10/09/2014 NNAMDIJAGUAR ROBLEDO N Ot V45.72 10/09/2014 NNAMDIJAGUAR ROBLEDO N Ot V58.69 10/09/2014 NNAMDIBRANDIN ROBLEDOMAR N Ot V58.81 11/04/2014 NNAMDIJAGUAR ROBLEDO N Ot 197.8 11/04/2014 NNAMDIJAGUAR ROBLEDO N Ot V10.05 11/04/2014 NNAMDIJAGUAR ROBLEDO N Ot V45.72 11/04/2014 NNAMDIJAGUAR ROBLEDO N Ot V58.69 11/04/2014 NNAMDIJAGUAR ROBLEDO N Ot V58.81 11/06/2014 SORAYA MANLEY SIDE LASTER STAPLE Ot 197.8 11/06/2014 SORAYA MANLEY SIDE LASTER STAPLE Ot 268.9 11/06/2014 SORAYA MANLEY SIDE LASTER STAPLE Ot 357.6 11/06/2014 SORAYA MANLEY SIDE LASTER STAPLE Ot E849.7 11/06/2014 SORAYA MANLEY SIDE LASTER STAPLE Ot E933.1 11/06/2014 SORAYA MANLEY SIDE LASTER STAPLE Ot V10.05 11/06/2014 SORAYA MANLEY SIDE LASTER STAPLE Ot V45.72 11/06/2014 SORAYA MANLEY SIDE LASTER STAPLE Ot V58.69 11/11/2014 NNAMDI BRANDINMAR N Ot 197.8 SEC MAL DOUG GI NEC 11/11/2014 JAGUAR COTO N Ot V10.05 HX OF COLONIC MALIGNANCY 11/11/2014 NNAMDIJAGUAR ROBLEDO N Ot V45.72 ACQRD ABSENCE INTESTINE - LARGE/SMALL 11/11/2014 NNAMDI BRANDINMAR N Ot V58.69 OTH MED,LT,CURRENT USE 11/11/2014 NNAMDI JAGUAR N Ot V58.81 FIT/ADJ VASCULAR CATHETER 11/11/2014 NNAMDI, BOBAN N Ot 197.8 11/11/2014 NNAMDI, BOBAN N Ot V10.05 11/11/2014 NNAMDI, BOBAN N Ot V45.72 11/11/2014 NNAMDI, BOBAN N Ot V58.69 11/11/2014 NNAMDI, BOBAN N Ot V58.81 11/11/2014 MANLEYSORAYA S SIDE LASTER STAPLE Ot 197.8 11/11/2014 MANLEYSORAYA S SIDE LASTER STAPLE Ot 268.9 11/11/2014 MANLEYLUISAAH S SIDE LASTER STAPLE Ot 357.6 11/11/2014 MANLEYLUISAAH S SIDE LASTER STAPLE Ot E849.7 11/11/2014 MANLEY HILAH S SIDE LASTER STAPLE Ot E933.1 11/11/2014 MANLEYLUISAAH S SIDE LASTER STAPLE Ot V10.05 11/11/2014 MANLEYSORAYA S SIDE LASTER STAPLE Ot V45.72 11/11/2014 MANLEYSORAYA S SIDE LASTER STAPLE Ot V58.69 01/26/2015 NNAMDI, BOBAN N Ot 197.8 01/26/2015 NNAMDI, BOBAN N Ot V10.05 01/26/2015 NNAMDI, BOBAN N Ot V45.72 01/26/2015 NNAMDI, BOBAN N Ot V58.69 01/26/2015 NNAMDI, BOBAN N Ot V58.81 02/16/2015 NNAMDI, BOBAN N Ot C78.89 02/16/2015 NNMADI, BOBAN N Ot Z79.899 02/16/2015 NNAMDI, BOBAN [...] DI 03/23/2015 JAGUAR COTO Ot Z79.899 OTHER PRISON (CURRENT) DRUG THERAPY 03/23/2015 JAGUAR COTO Ot Z85.038 PERSONAL HISTORY OF [...] 03/23/2015 Ot V58.69 03/23/2015 Ot V67.09 03/23/2015 NNAMDIJAGUAR ROBLEDO N Ot 241.0 03/23/2015 NNAMDIJAGUAR ROBLEDO N Ot 611.79 03/23/2015 NNAMDIJAGUAR ROBLEDO N Ot 795.81 03/23/2015 NNAMDIJAGUAR ROBLEDO N Ot V10.05 03/23/2015 NNAMDIJAGUAR ROBLEDO N Ot V45.72 03/23/2015 NNAMDIJAGUAR ROBLEDO N Ot V58.66 03/23/2015 NNAMDIJAGUAR ROBLEDO N Ot V58.69 03/23/2015 NNAMDIJAGUAR ROBLEDO N Ot V67.09 03/23/2015 SORAYA MANLEY S SIDE LASTER STAPLE Ot 241.0 03/23/2015 MANLEYSORAYA Ordaz S SIDE LASTER STAPLE Ot 795.81 03/23/2015 MANLEYSORAYA Ordaz S SIDE LASTER STAPLE Ot V10.05 03/23/2015 MANLEYSORAYA S SIDE LASTER STAPLE Ot V45.72 03/23/2015 MANLEYLUISAAH S SIDE LASTER STAPLE Ot V58.66 03/23/2015 MANLEYLUISAAH S SIDE LASTER STAPLE Ot V58.69 03/23/2015 MANLEYSORAYA Ordaz S SIDE LASTER STAPLE Ot V67.09 03/23/2015 SORAYA MANLEY S SIDE LASTER STAPLE Ot 153.9 03/23/2015 SORAYA MANLEY S SIDE LASTER STAPLE Ot 289.50 03/23/2015 SARAN MEJIA, MANOLO De La Cruz Ot 241.1 03/23/2015 SARAN MEJIA, MANOLO De La Cruz Ot V72.84 03/23/2015 SARAN MEJIA, MANOLO De La Cruz Ot 241.0 03/23/2015 BRANDIN COTOAN N Ot 197.8 03/23/2015 NNAMDI, JAGUAR N Ot 241.0 03/23/2015 BRANDIN COTOAN N Ot V10.05 03/23/2015 NNAMDI, JAGUAR N Ot V45.72 03/23/2015 NNAMDI, JAGUAR N Ot V58.66 03/23/2015 NNAMDI, BRANDINAN N Ot V58.69 03/23/2015 NNAMDIJAGUAR ROBLEDO N Ot V67.09 03/23/2015 SARAN MEJIA, MANOLO M Ot 521.00 03/23/2015 SARAN MEJIA, MANOLO M Ot V72.84 03/23/2015 MANLEYSORAYA S SIDE LASTER STAPLE Ot 197.8 03/23/2015 MANLEY SORAYA S SIDE LASTER STAPLE Ot 241.0 03/23/2015 MANLEY SORAYA S SIDE LASTER STAPLE Ot V10.05 03/23/2015 MANLEY SORAYA S SIDE LASTER STAPLE Ot V45.72 03/23/2015 MANLEY SORAYA S SIDE LASTER STAPLE Ot V58.66 03/23/2015 MANLEY SORAYA S SIDE LASTER STAPLE Ot V58.69 03/23/2015 MANLEY SORAYA S SIDE LASTER STAPLE Ot V67.09 03/23/2015 MANLEY SORAYA S SIDE LASTER STAPLE Ot 197.8 03/23/2015 MANLEY SORAYA S SIDE LASTER STAPLE Ot 241.0 03/23/2015 MANLEY, SORAYA S SIDE LASTER STAPLE Ot V10.05 03/23/2015 MANLEY SORAYA S SIDE LASTER STAPLE Ot V45.72 03/23/2015 MANLEY LUISAAH S SIDE LASTER STAPLE Ot V58.66 03/23/2015 MANLEY, LUISAAH S SIDE LASTER STAPLE Ot V58.69 03/23/2015 MANLEY, LUISAAH S SIDE LASTER STAPLE Ot V67.09 03/23/2015 MANLEY, HILAH S SIDE LASTER STAPLE Ot 197.8 03/23/2015 MANLEY HILAH S SIDE LASTER STAPLE Ot V10.05 03/23/2015 MANLEY, HILAH S SIDE LASTER STAPLE Ot V45.72 03/23/2015 MANLEY LUISAAH S SIDE LASTER STAPLE Ot V58.69 03/23/2015 MANLEY HILAH S SIDE LASTER STAPLE Ot 197.8 03/23/2015 MANLEY LUISAAH S SIDE LASTER STAPLE Ot 275.2 03/23/2015 SORAYA MANLEY SIDE LASTER STAPLE Ot V10.05 03/23/2015 SORAYA MANLEY S SIDE LASTER STAPLE Ot V45.72 03/23/2015 SORAYA MANLEY S SIDE LASTER STAPLE Ot V58.69 03/23/2015 SORAYA MANLEY S SIDE LASTER STAPLE Ot 197.8 03/23/2015 SORAYA MANLEY S SIDE LASTER STAPLE Ot V10.05 03/23/2015 SORAYA MANLEY S SIDE LASTER STAPLE Ot V45.72 03/23/2015 MANLEYSORAYA Ordaz S SIDE LASTER STAPLE Ot V58.69 03/23/2015 MANLEYSORAYA Ordaz S SIDE LASTER STAPLE Ot 197.8 03/23/2015 MANLEYSORAYA Ordaz S SIDE LASTER STAPLE Ot 357.6 03/23/2015 SORAYA MANLEY S SIDE LASTER STAPLE Ot E849.7 03/23/2015 SORAYA MANLEY S SIDE LASTER STAPLE Ot E933.1 03/23/2015 SORAYA MANLEY S SIDE LASTER STAPLE Ot V10.05 03/23/2015 SORAYA MANLEY S SIDE LASTER STAPLE Ot V45.72 03/23/2015 SORAYA MANLEY S SIDE LASTER STAPLE Ot V58.69 03/23/2015 JAGUAR COTO Ot 153.9 03/23/2015 SORAYA MANLEY S SIDE LASTER STAPLE Ot 197.8 03/23/2015 SORAYA MANLEY S SIDE LASTER STAPLE Ot V10.05 03/23/2015 SORAYA MANLEY S SIDE LASTER STAPLE Ot V45.72 03/23/2015 MANLEYSORAYA Ordaz S SIDE LASTER STAPLE Ot V58.69 03/23/2015 MANLEYSORAYA Ordaz S SIDE LASTER STAPLE Ot V58.81 03/23/2015 Ot 153.9 03/23/2015 Ot 795.81 03/23/2015 Ot 197.8 03/23/2015 Ot V10.05 03/23/2015 Ot V45.72 03/23/2015 Ot V58.69 03/23/2015 Ot V58.81 03/23/2015 ELTON MEJIA, ESSIE James Ot 268.9 03/23/2015 ELTON MEJIA, ESSIE James Ot 272.0 03/23/2015 ELTON MEJIA, ESSIE James Ot 401.9 03/23/2015 MANLEYSORAYA Ordaz S SIDE LASTER STAPLE Ot 197.8 03/23/2015 MANLEYSORAYA S SIDE LASTER STAPLE Ot 268.9 03/23/2015 SORAYA MANLEY SIDE LASTER STAPLE Ot 357.6 03/23/2015 SORAYA MANLEY SIDE LASTER STAPLE Ot E849.7 03/23/2015 SORAYA MANLEY SIDE LASTER STAPLE Ot E933.1 03/23/2015 SORAYA MANLEY SIDE LASTER STAPLE Ot V10.05 03/23/2015 SORAYA MANLEY SIDE LASTER STAPLE Ot V45.72 03/23/2015 SORAYA MANLEY SIDE LASTER STAPLE Ot V58.69 03/23/2015 NNAMDI, BOBAN N Ot C78.89 03/23/2015 NNAMDI, BOBAN N Ot Z79.899 03/23/2015 NNAMDI, BOBAN N Ot Z85.038 03/23/2015 NNAMDI, BOBAN N Ot Z90.49 03/23/2015 SARAN MEJIA, MANOLO M Ot Z01.818 03/23/2015 SARAN MEJIA, MANOLO M Ot Z85.038 03/23/2015 SARAN MEJIA, MANOLO M Ot Z86.010 03/25/2015 NNAMDI, BOBAN N Ot [...] M Ot C18.9 05/11/2015 SARAN MEJIA, MANOLO M Ot Z01.818 05/11/2015 SARAN MEJIA, MANOLO M Ot C18.9 05/11/2015 SARAN MEJIA, MANOLO De La Cruz Ot Z01.818 05/20/2015 NNAMDI, BOBAN N Ot C78.89 05/20/2015 NNAMDI, BOBAN N Ot Z79.899 05/20/2015 NNAMDI, BOBAN N Ot Z85.038 05/20/2015 NNAMDIJAGUAR ROBLEDO N Ot Z90.49 05/21/2015 JAGUAR COTO N Ot C78.89 05/21/2015 JAGUAR COTO N Ot Z79.899 05/21/2015 NNAMDIJAGUAR ROBLEDO N Ot Z85.038 05/21/2015 JAGUAR COTO N Ot Z90.49 06/17/2015 ELTON MEJIA, ESSIE D Ot E78.2 MIXED HYPERLIPIDEMIA 06/17/2015 ELTON MEJIA, ESSIE D Ot R53.83 OTHER FATIGUE 06/22/2015 JAGUAR COTO N Ot 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 06/22/2015 JAGUAR COTO N Ot Z45.2 ENCOUNTER FOR ADJUSTMENT AND MANAGEMENT 06/22/2015 JAGUAR COTO N Ot Z79.899 OTHER PRISON (CURRENT) DRUG THERAPY 06/22/2015 JAGUAR COTO N [...] 06/24/2015 JAGUAR COTO N Ot 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 06/24/2015 JAGUAR COTO N Ot Z85.038 PERSONAL HISTORY OF MALIGNANT NEOPLASM O 06/24/2015 JAGUAR COTO N Ot Z90.49 ACQUIRED ABSENCE OF OTHER SPECIFIED PART 07/02/2015 JAGUAR COTO Ot 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 07/02/2015 JAGUAR COTO Ot 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 07/02/2015 JAGUAR COTO Ot Z85.038 PERSONAL HISTORY OF MALIGNANT NEOPLASM O 07/02/2015 JAGUAR COTO Ot Z90.49 ACQUIRED ABSENCE OF OTHER SPECIFIED PART 07/08/2015 ELTON MEJIA, ESSIE D Ot E78.2 MIXED HYPERLIPIDEMIA 07/08/2015 ELTON MEJIA, ESSIE D Ot R53.83 OTHER FATIGUE 07/21/2015 SORAYA MANLEY SIDE LASTER STAPLE Ot 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 07/21/2015 SORAYA MANLEY SIDE LASTER STAPLE Ot E55.9 VITAMIN D DEFICIENCY, UNSPECIFIED 07/21/2015 SORAYA MANLEY SIDE LASTER STAPLE Ot G62.9 POLYNEUROPATHY, UNSPECIFIED 07/21/2015 SORAYA MANLEY S SIDE LASTER STAPLE Ot R97.0 ELEVATED CARCINOEMBRYONIC ANTIGEN [CEA] 07/21/2015 SORAYA MANLEY SIDE LASTER STAPLE Ot Z08 ENCNTR FOR FOLLOW-UP EXAM AFTER TRTMT FO 07/21/2015 SORAYA MANLEY SIDE LASTER STAPLE Ot Z79.899 OTHER PRISON (CURRENT) DRUG THERAPY 07/21/2015 SORAYA MANLEY SIDE LASTER STAPLE Ot Z85.038 PERSONAL HISTORY OF MALIGNANT NEOPLASM O 07/21/2015 SORAYA MANLEY SIDE LASTER STAPLE Ot Z92.21 PERSONAL HISTORY OF ANTINEOPLASTIC CHEMO 07/23/2015 SORAYA MANLEY SIDE LASTER STAPLE Ot 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 07/23/2015 SORAYA MANLEY SIDE LASTER STAPLE Ot E55.9 VITAMIN D DEFICIENCY, UNSPECIFIED 07/23/2015 SORAYA MANLEY SIDE LASTER STAPLE Ot G62.9 POLYNEUROPATHY, UNSPECIFIED 07/23/2015 SORAYA MANLEY S SIDE LASTER STAPLE Ot R97.0 ELEVATED CARCINOEMBRYONIC ANTIGEN [CEA] 07/23/2015 SORAYA MANLEY S SIDE LASTER STAPLE Ot Z08 ENCNTR FOR FOLLOW-UP EXAM AFTER TRTMT FO 07/23/2015 SORAYA MANLEY SIDE LASTER STAPLE Ot 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 07/23/2015 SORAYA MANLEY SIDE LASTER STAPLE Ot Z85.038 PERSONAL HISTORY OF MALIGNANT NEOPLASM O 07/23/2015 SORAYA MANLEY SIDE LASTER STAPLE Ot Z92.21 PERSONAL HISTORY OF ANTINEOPLASTIC CHEMO 08/06/2015 JAGUAR COTO N Ot 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 08/06/2015 JAGUAR COTO Ot E55.9 VITAMIN D DEFICIENCY, UNSPECIFIED 08/06/2015 JAGUAR COTO N Ot 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 08/06/2015 JAGUAR COTO N Ot Z85.038 PERSONAL HISTORY OF MALIGNANT NEOPLASM O 08/06/2015 JAGUAR COTO N Ot Z90.49 ACQUIRED ABSENCE OF OTHER SPECIFIED PART 08/19/2015 JAGUAR COTO N Ot 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 08/19/2015 JAGUAR COTO N Ot E55.9 VITAMIN D DEFICIENCY, UNSPECIFIED 08/19/2015 JAGUAR COTO N Ot 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 08/19/2015 JAGUAR COTO N Ot Z85.038 PERSONAL HISTORY OF MALIGNANT NEOPLASM O 08/19/2015 JAGUAR COTO N Ot Z90.49 ACQUIRED ABSENCE OF OTHER SPECIFIED PART 09/29/2015 JAGUAR COTO N Ot 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 09/29/2015 JAGUAR COTO N Ot E55.9 VITAMIN D DEFICIENCY, UNSPECIFIED 09/29/2015 JAGUAR COTO N Ot 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 09/29/2015 JAGUAR COTO N [...] 10/22/2015 JAGUAR COTO N Ot 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 10/22/2015 JAGUAR COTO N Ot Z85.038 PERSONAL HISTORY OF MALIGNANT NEOPLASM O 10/22/2015 JAGUAR COTO N Ot Z90.49 ACQUIRED ABSENCE OF OTHER SPECIFIED PART 11/22/2015 JAGUAR COTO Ot 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 11/22/2015 JAGUAR COTO Ot E55.9 VITAMIN D DEFICIENCY, UNSPECIFIED 11/22/2015 JAGUAR COTO Ot Z45.2 ENCOUNTER FOR ADJUSTMENT AND MANAGEMENT 11/22/2015 JAGUAR COTO Ot Z79.899 OTHER PRISON (CURRENT) DRUG THERAPY 11/22/2015 JAGUAR COTO Ot Z85.038 PERSONAL HISTORY OF MALIGNANT NEOPLASM O 11/22/2015 JAGUAR COTO N Ot Z90.49 ACQUIRED ABSENCE OF OTHER SPECIFIED PART 12/03/2015 JAGUAR COTO N Ot 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 12/03/2015 JAGUAR COTO Ot E55.9 VITAMIN D DEFICIENCY, UNSPECIFIED 12/03/2015 JAGUAR COTO N Ot Z79.899 OTHER PRISON (CURRENT) DRUG THERAPY 12/03/2015 JAGUAR COTO Ot Z85.038 PERSONAL HISTORY OF MALIGNANT NEOPLASM O 12/03/2015 JAGUAR COTO N Ot Z90.49 ACQUIRED ABSENCE OF OTHER SPECIFIED PART 01/12/2016 JAGUAR COTO N Ot 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 01/12/2016 JAGUAR COTO Ot E55.9 VITAMIN D DEFICIENCY, UNSPECIFIED 01/12/2016 JAGUAR COTO N Ot Z79.899 OTHER PRISON (CURRENT) DRUG THERAPY 01/12/2016 JAGUAR COTO N Ot Z85.038 PERSONAL HISTORY OF MALIGNANT NEOPLASM O 01/12/2016 JAGUAR COTO N Ot Z90.49 ACQUIRED ABSENCE OF OTHER SPECIFIED PART 01/14/2016 JAGUAR COTO N Ot 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 01/14/2016 JAGUAR COTO N Ot E55.9 VITAMIN D DEFICIENCY, UNSPECIFIED 01/14/2016 JAGUAR COTO N Ot Z79.899 OTHER PRISON (CURRENT) DRUG THERAPY 01/14/2016 JAGUAR COTO N Ot Z85.038 PERSONAL HISTORY OF MALIGNANT NEOPLASM O 01/14/2016 JAGUAR COTO N Ot Z90.49 ACQUIRED ABSENCE OF OTHER SPECIFIED PART 03/01/2016 JAGUAR COTO N Ot 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 03/01/2016 JAGUAR COTO Ot E55.9 VITAMIN D DEFICIENCY, UNSPECIFIED 03/01/2016 JAGUAR COTO Ot Z45.2 ENCOUNTER FOR ADJUSTMENT AND MANAGEMENT 03/01/2016 JAGUAR COTO N Ot 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 03/01/2016 JAGUAR COTO N Ot Z85.038 PERSONAL HISTORY OF MALIGNANT NEOPLASM O 03/01/2016 JAGUAR COTO N Ot Z90.49 ACQUIRED ABSENCE OF OTHER SPECIFIED PART 03/02/2016 JAGUAR COTO N Ot 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 03/02/2016 JAGUAR COTO N Ot E55.9 VITAMIN D DEFICIENCY, UNSPECIFIED 03/02/2016 JAGUAR COTO N Ot Z45.2 ENCOUNTER FOR ADJUSTMENT AND MANAGEMENT 03/02/2016 JAGUAR COTO N Ot 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 03/02/2016 JAGUAR COTO N Ot Z85.038 PERSONAL HISTORY OF MALIGNANT NEOPLASM O 03/02/2016 JAGUAR COTO N Ot Z90.49 ACQUIRED ABSENCE OF OTHER SPECIFIED PART 03/30/2016 JAGUAR COTO N Ot 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 03/30/2016 JAGUAR COTO N Ot E55.9 VITAMIN D DEFICIENCY, UNSPECIFIED 03/30/2016 JAGUAR COTO N Ot 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 03/30/2016 JAGUAR COTO N Ot Z85.038 PERSONAL HISTORY OF MALIGNANT NEOPLASM O 03/30/2016 JAGUAR COTO N Ot Z90.49 ACQUIRED ABSENCE OF OTHER SPECIFIED PART 05/10/2016 JAGUAR COTO N Ot 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 05/10/2016 JAGUAR COTO N Ot E55.9 VITAMIN D DEFICIENCY, UNSPECIFIED 05/10/2016 JAGUAR COTO N Ot Z79.899 OTHER PRISON (CURRENT) DRUG THERAPY 05/10/2016 JAGUAR COTO N Ot Z85.038 PERSONAL HISTORY OF MALIGNANT NEOPLASM O 05/10/2016 JAGUAR COTO N Ot Z90.49 ACQUIRED ABSENCE OF OTHER SPECIFIED PART 05/16/2016 JAGUAR COTO N Ot 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 05/16/2016 JAGUAR COTO Ot E55.9 VITAMIN D DEFICIENCY, UNSPECIFIED 05/16/2016 JAGURA COTO Ot 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 05/16/2016 JAGUAR COTO Ot [...] V58.66 LONG-TERM (CURRENT) USE OF ASPIRIN 05/30/2016 NNAMDIJAGUAR Ot V58.69 OTH MED,LT,CURRENT USE 05/30/2016 JAGUAR COTO Ot V67.09 SURGERY FOLLOW-UP, OTHER SURGERY 05/30/2016 SORAYA MANLEY SIDE LASTER STAPLE Ot 241.0 NONTOX UNINODULAR GOITER 05/30/2016 SORAYA MANLEY SIDE LASTER STAPLE Ot 795.81 ELEVATED CARCINOEMBRYONIC ANTIGEN [CEA] 05/30/2016 SORAYA MANLEY SIDE LASTER STAPLE Ot V10.05 HX OF COLONIC MALIGNANCY 05/30/2016 SORAYA MANLEY SIDE LASTER [employer]APLE Ot V45.72 ACQRD ABSENCE INTESTINE - LARGE/SMALL 05/30/2016 SORAYA MANLEY SIDE LASTER [employer]APLE Ot V58.66 LONG-TERM (CURRENT) USE OF ASPIRIN 05/30/2016 SORAYA MANLEY SIDE LA[employer]APLE Ot V58.69 OTH MED,LT,CURRENT USE 05/30/2016 SORAYA MANLEY SIDE LASTER [employer]APLE Ot V67.09 SURGERY FOLLOW-UP, OTHER SURGERY 05/30/2016 SORAYA MANLEY SIDE LASTER [employer]APLE Ot 153.9 MALIGNANT DOUG COLON NOS 05/30/2016 SORAYA MANLEY SIDE LA[employer]APLE Ot 289.50 SPLEEN DISEASE NOS 05/30/2016 SARAN MEJIA, MANOLO M Ot 241.1 NONTOX MULTINODUL GOITER 05/30/2016 SARAN MEJIA, MANOLO [place] Ot V72.84 EXAM PRE-OPERATIVE NOS 05/30/2016 SARAN MEJIA, MANOLO [place] Ot 241.0 NONTOX UNINODULAR GOITER 05/30/2016 NNAMDIJAGUAR ROBLEDO N Ot 197.8 SEC MAL DOUG GI NEC 05/30/2016 JAGUAR COTO N Ot 241.0 NONTOX UNINODULAR GOITER 05/30/2016 JAGUAR COTO Ot V10.05 HX OF COLONIC MALIGNANCY 05/30/2016 JAGUAR COTO N Ot V45.72 ACQRD ABSENCE INTESTINE - LARGE/SMALL 05/30/2016 JAGUAR COTO N Ot V58.66 LONG-TERM (CURRENT) USE OF ASPIRIN 05/30/2016 JAGUAR COTO Ot V58.69 OTH MED,LT,CURRENT USE 05/30/2016 JAGUAR COTO N Ot V67.09 SURGERY FOLLOW-UP, OTHER SURGERY 05/30/2016 SARAN MEJIA, MANOLO [place] Ot 521.00 UNSPEC DENTAL CARIES 05/30/2016 SARAN MEJIA, MANOLO [place] Ot V72.84 EXAM PRE-OPERATIVE NOS 05/30/2016 SORAYA MANLEY SIDE LASTER STAPLE Ot 197.8 SEC MAL DOUG GI NEC 05/30/2016 SORAYA MANLEY SIDE LASTER [employer]APLE Ot 241.0 NONTOX UNINODULAR GOITER 05/30/2016 SORAYA MANLEY S SIDE LASTER STAPLE Ot V10.05 HX OF COLONIC MALIGNANCY 05/30/2016 SORAYA MANLEY S SIDE LASTER STAPLE Ot V45.72 ACQRD ABSENCE INTESTINE - LARGE/SMALL 05/30/2016 SORAYA MANLEY S SIDE LASTER STAPLE Ot V58.66 LONG-TERM (CURRENT) USE OF ASPIRIN 05/30/2016 SORAYA MANLEY SIDE LASTER [employer]APLE Ot V58.69 OTH MED,LT,CURRENT USE 05/30/2016 SORAYA MANLEY SIDE LASTER [employer]APLE Ot V67.09 SURGERY FOLLOW-UP, OTHER SURGERY 05/30/2016 SORAYA MANLEY SIDE LA[employer]APLE Ot 197.8 SEC MAL DOUG GI NEC 05/30/2016 SORAYA MANLEY SIDE LASTER [employer]APLE Ot 241.0 NONTOX UNINODULAR GOITER 05/30/2016 SORAYA MANLEY SIDE LA[employer]APLE Ot V10.05 HX OF COLONIC MALIGNANCY 05/30/2016 SORAYA MANLEY SIDE LASTER [employer]APLE Ot V45.72 ACQRD ABSENCE INTESTINE - LARGE/SMALL 05/30/2016 SORAYA MANLEY SIDE LA[employer]APLE Ot V58.66 LONG-TERM (CURRENT) USE OF ASPIRIN 05/30/2016 SORAYA MANLEY SIDE LASTER [employer]APLE Ot V58.69 OTH MED,LT,CURRENT USE 05/30/2016 SORAYA MANLEY SIDE LASTER [employer]APLE Ot V67.09 SURGERY FOLLOW-UP, OTHER SURGERY 05/30/2016 SORAYA MANLEY SIDE LASTER [employer]APLE Ot 197.8 SEC MAL DOUG GI NEC 05/30/2016 SORAYA MANLEY SIDE LASTER [employer]APLE Ot V10.05 HX OF COLONIC MALIGNANCY 05/30/2016 SORAYA MANLEY SIDE LASTER [employer]APLE Ot V45.72 ACQRD ABSENCE INTESTINE - LARGE/SMALL 05/30/2016 SORAYA MANLEY SIDE LASTER [employer]APLE Ot V58.69 OTH MED,LT,CURRENT USE 05/30/2016 SORAYA MANLEY SIDE LA[employer]APLE Ot 197.8 SEC MAL DOUG GI NEC 05/30/2016 SORAYA MANLEY SIDE LASTER [employer]APLE Ot 275.2 DIS MAGNESIUM METABOLISM 05/30/2016 SORAYA MANLEY SIDE LASTER [employer]APLE Ot V10.05 HX OF COLONIC MALIGNANCY 05/30/2016 SORAYA MANLEY SIDE LASTER [employer]APLE Ot V45.72 ACQRD ABSENCE INTESTINE - LARGE/SMALL 05/30/2016 SORAYA MANLEY SIDE LASTER [employer]APLE Ot V58.69 OTH MED,LT,CURRENT USE 05/30/2016 SORAYA MANLEY SIDE LA[employer]APLE Ot 197.8 SEC MAL DOUG GI NEC 05/30/2016 SORAYA MANLEY SIDE LASTER [employer]APLE Ot V10.05 HX OF COLONIC MALIGNANCY 05/30/2016 SORAYA MANLEY SIDE LA[employer]APLE Ot V45.72 ACQRD ABSENCE INTESTINE - LARGE/SMALL 05/30/2016 SORAYA MANLEY SIDE LA[employer]APLE Ot V58.69 OTH MED,LT,CURRENT USE 05/30/2016 SORAYA MANLEY SIDE LA[employer]APLE Ot 197.8 SEC MAL DOUG GI NEC 05/30/2016 SORAYA MANLEY SIDE LA[employer]APLE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 [id number] 08/27/2013 08:37:00 08/27/2013 23:59:59 CLS Outpatient MANLEYLUISAAH [place] [facility] ONC [id number] 07/16/2013 08:38:00 07/16/2013 23:59:59 CLS Outpatient MANLEY HILAH [place] [facility] ONC [id number] 06/23/2013 08:39:00 07/15/2013 00:01:00 DIS Outpatient JAGUAR COTO Brent [facility] ONC [id number] 06/23/2013 08:40:00 06/23/2013 23:59:59 CLS Outpatient MANLEYLUISAAH [place] [facility] ONC [id number] 05/13/2013 10:18:00 05/13/2013 23:59:59 CLS Outpatient MANLEY HILAH [place] [facility] ONC [id number] 04/22/2013 09:19:00 04/22/2013 23:59:59 CLS Outpatient MANLEY HILAH [place] [facility] ONC [id number] 04/11/2013 06:50:00 04/11/2013 11:48:00 DIS Outpatient NOONAN MD, MANOLO M [facility] COLON CANCER [id number] 04/07/2013 07:35:00 04/07/2013 23:59:59 CLS Outpatient MANOLO NOONAN MD [facility] PREOP COLON CANCER [id number] 03/20/2013 14:36:00 03/20/2013 23:59:59 CLS Outpatient JAGUAR COTO [facility] ONC [id number] 02/25/2013 09:18:00 02/25/2013 23:59:59 CLS Outpatient MANOLO NOONAN MD [facility] RAD THYROID NODULE [id number] 02/17/2013 08:27:00 02/17/2013 11:45:00 DIS Outpatient MANOLO NOONAN MD [facility] HISTORY OF COLON CANCER [id number] 02/13/2013 09:20:00 02/13/2013 23:59:59 CLS Outpatient MANOLO NOONAN MD [facility] PREOP HISTORY OF COLON CANCER [id number] 02/11/2013 14:12:00 02/11/2013 23:59:59 CLS Outpatient MANOLO NOONAN MD [facility] RAD RT THYROID NODULE [id number] 01/07/2013 07:37:00 01/07/2013 23:59:59 CLS Outpatient SROAYA MAN[place] [facility] RAD LEISON ON SPLEEN [id number] 12/31/2012 07:52:00 12/31/2012 23:59:59 CLS Outpatient SORAYA MAN[place] [facility] RAD COLON CA [id number] 11/21/2012 14:45:00 11/21/2012 23:59:59 CLS Outpatient SORAYA MAN[place] [facility] ONC [id number] 06/14/2012 13:13:00 06/14/2012 23:59:59 CLS Outpatient JAGUAR COTO [facility] ONC [id number] 03/23/2015 08:23:00 Document Registration [id number] 03/23/2015 08:23:00 Document Registration [id number] 05/14/2014 13:45:00 Document Registration [id number] 04/14/2014 08:17:00 Document Registration [id number] 05/16/2012 13:23:00 Document Registration [id number] 11/13/2011 13:24:00 Document Registration [id number] 05/15/2011 13:25:00 Document Registration [id number] 03/14/2011 11:47:00 Document Registration [id number] 03/09/2011 10:28:00 Document Registration [id number] 01/30/2011 13:53:00 Document Registration [id number] 01/23/2011 06:36:00 Document Registration [id number] 10/24/2010 13:55:00 Document Registration [id number] 07/25/2010 13:52:00 Document Registration [id number] 05/17/2010 08:50:00 Document Registration [id number] 04/25/2010 13:33:00 Document Registration [id number] 01/27/2010 12:56:00 Document Registration [id number] 01/24/2010 06:56:00 Document Registration [id number] 10/21/2009 09:33:00 Document Registration [id number] 11/11/2014 09:50:15 ACT Document Registration
[2017-10-17 06:40] VITALS: BP 171/74
[2017-10-17] MEDS ORDERED: PROPOFOL INJECTION 50 ML IV ONE (06:40)
[2017-10-17] MEDS ORDERED: MIDAZOLAM 2 MG/2 ML (VERSED) VIAL ONE ×2 (06:40→08:02)
[2017-10-17] MEDS ORDERED: ceFAZolin 1,000 MG/10 ML (ANCEF) VIAL ONE (06:43)
[2017-10-17] MEDS ORDERED: NS (IVPB) 50 ML ONE (06:43)
[2017-10-17] MEDS ORDERED: LACTATED RINGERS 1,000 ML IV PRN (06:53)
[2017-10-17] MEDS ORDERED: CATHETER FLUSH 10 ML SYR IV PRN (07:00)
[2017-10-17] MEDS ORDERED: ceFAZolin INJECTION 1,000 MG in NS (IVPB) 50 ML IV ONE (07:00)
[2017-10-17] MEDS ORDERED: BUPIVACAINE 0.5% 30 ML (SENSORCAINE) VIAL ONE (07:02)
[2017-10-17] MEDS ORDERED: BUP/EPI 0.5% 1:200,000 (SENSORCAINE) 30 ML VIAL ONE (07:03)
--- NOTE | 2017-10-17 08:58 | Operative Report ---
Operative Report Date of Procedure/Surgery Oct 17, 2017 Surgeon (s) MANOLO NOONAN MD Daycare Provider (s): N/A Post-Operative Diagnosis Same Procedure Performed Removal of infusaport Description of Procedure Anesthesia Type: MAC Estimated blood loss (mL): Minimal Specimen(s) collected/removed None Description of the Procedure Indication for the procedure: This lady came in to have her infusaport, that had been confirmed to be not in use by her oncologist, removed. Informed consent was obtained after reviewing the procedure in detail. Description of the procedure: She was placed supine on the operative table and our MACHINE TECHNICIAN administered sedation, monitoring of vital signs. Ancef was administered intravenously as prophylaxis against wound infection. Right infraclavicular fossa was prepared and draped in the usual sterile manner. Local anesthesia was achieved using 0.5 percent Marcaine with epinephrine. A secondary incision was made along the previous scar and the Gntpmk-y-Xjun removal without risking air embolus the incision was then closed using 3-0 Vicryl for the subcutaneous tissue and 4-0 Vicryl for skin, in a subcuticular fashion. Steri-Strips and a nonadherent dressing were then applied. She tolerated the procedure well and was taken to the recovery room in a stable condition. Findings of the Procedure See operative report Allergies and Home Medications Allergies Coded Allergies: No Known Drug Allergies (Unverified , 02/07/17) Home Medications Ascorbic Acid 500 Mg Tab.chew, 500 MG PO DAILY, (Reported) Aspirin 81 Mg Tablet.dr, 81 MG PO DAILY, (Reported) Atorvastatin Calcium 20 Mg Tablet, 20 MG PO DAILY, (Reported) Cholecalciferol 5,000 Unit Capsule, 5,000 UNIT PO DAILY, (Reported) Metoprolol Succinate 200 Mg Tab.er.24h, 200 MG PO HS, (Reported) Trazodone HCl 100 Mg Tablet, 50 MG PO HS, (Reported) Patient Home Medication List Home Medication List Reviewed: Yes MANOLO NOONAN MD Oct 17, 2017 08:58
--- NOTE | 2017-10-17 08:59 | Progress Note-Pre Operative ---
Pre-Operative Progress Note H&P Reviewed The H&P was reviewed, patient examined and no changes noted. Date Seen by Provider: Oct 11, 2017 Time Seen by Provider: 11:00 Date H&P Reviewed: Oct 17, 2017 Time H&P Reviewed: 07:45 Pre-Operative Diagnosis: Unused Rueekc-k-Csek MANOLO NOONAN MD Oct 17, 2017 08:59
[2017-10-17 09:00] VITALS: BP 148/63
[2017-10-17] MEDS ORDERED: TRAM50TA2 PO (09:00)
--- NOTE | 2017-10-17 09:00 | Discharge Inst-Simple/Standard ---
Discharge Inst-Standard Discharge Medications New, Converted or Re-Newed RX: RX on Chart Patient Instructions/Follow Up Plan of Care/Instructions/FU: Dressings off in 48 hours. To call if any concerns arise. Activity as Tolerated: Yes Discharge Diet: No Restrictions MANOLO NOONAN MD Oct 17, 2017 09:00
[2017-10-17 09:30] VITALS: BP 165/83
[2017-10-17 10:00] VITALS: BP 167/87
--- NOTE | 2017-10-17 15:29 | Anesthesia-General Post-Op ---
MAC Patient Condition Mental Status/LOC: Same as Preop Cardiovascular: Satisfactory Nausea/Vomiting: Absent Respiratory: Satisfactory Pain: Controlled Complications: Absent Post Op Complications Complications None Follow Up Care/Instructions Patient Instructions None needed. Anesthesiology Discharge Order Discharge Order Patient is doing well, no complaints, stable vital signs, no apparent adverse anesthesia problems. No complications reported per nursing. EVE BOWMAN CRNA Oct 17, 2017 15:29
== END 2017-10-17 10:08 | disposition home or self-care (01) ==
LOC: SDC 06:15
PROVIDERS: ATTEND Surgery
DX: Z08 Encounter for follow-up examination after completed treatment for malignant neoplasm (principal); Z85.038 Personal history of other malignant neoplasm of large intestine; I10 Essential (primary) hypertension; Z79.82 Long term (current) use of aspirin
CPT/HCPCS: 87081

== ENCOUNTER → 2017-12-12 | Outpatient (CLI) | payer MEDICARE ==
[~2017-12-12] MED LIST changes: +TRAM50TA2 PO
[2017-12-12 09:09] LABS: BASOPHILS # (AUTO) 0.1 10^3/uL (0.0-0.1); BASOPHILS % (AUTO) 1 % (0-10); EOSINOPHILS # (AUTO) 0.2 10^3/uL (0.0-0.3); EOSINOPHILS % (AUTO) 4 % (0-10); HEMATOCRIT 42 % (35-52); HEMOGLOBIN 14.1 G/DL (11.5-16.0); LYMPHOCYTES # (AUTO) 1.9 X 10^3 (1.0-4.0); LYMPHOCYTES % (AUTO) 29 % (12-44); MEAN CORPUSCULAR HEMOGLOBIN 33 PG (25-34); MEAN CORPUSCULAR HGB CONC 34 G/DL (32-36); MEAN CORPUSCULAR VOLUME 97 FL (80-99); MEAN PLATELET VOLUME 10.8 FL (7.4-10.4); MONOCYTES # (AUTO) 0.9 X 10^3 (0.0-1.0); MONOCYTES % (AUTO) 13 % (0-12); NEUTROPHILS # (AUTO) 3.6 X 10^3 (1.8-7.8); NEUTROPHILS % (AUTO) 54 % (42-75); PLATELET COUNT 274 10^3/uL (130-400); RED BLOOD COUNT 4.32 10^6/uL (4.35-5.85); WHITE BLOOD COUNT 6.6 10^3/uL (4.3-11.0)
[2017-12-12 09:32] LABS: ALANINE AMINOTRANSFERASE 24 U/L (0-55); ALKALINE PHOSPHATASE 71 U/L (40-136); BILIRUBIN,TOTAL 0.7 MG/DL (0.1-1.0); BUN/CREATININE RATIO 19; CALCIUM 9.8 MG/DL (8.5-10.1); CARBON DIOXIDE 25 MMOL/L (21-32); CHLORIDE 105 MMOL/L (98-107); CHOLESTEROL 221 MG/DL (< 200); CREATININE SERUM 0.89 MG/DL (0.60-1.30); GFR ESTIMATED > 60; GLUCOSE 117 MG/DL (70-105); HDL CHOLESTEROL 55 MG/DL (40-60); POTASSIUM 4.4 MMOL/L (3.6-5.0); SODIUM 139 MMOL/L (135-145); TOTAL PROTEIN 7.2 GM/DL (6.4-8.2); TRIGLYCERIDES 155 MG/DL (<150); VLDL CHOLESTEROL 31 MG/DL (5-40)
== END ==
LOC: LAB 08:42
PROVIDERS: ATTEND Nurse Practitioner Family
DX: E78.2 Mixed hyperlipidemia (principal); I10 Essential (primary) hypertension; R53.83 Other fatigue
CPT/HCPCS: 36415; 80053; 80061; 84443; 85025

== ENCOUNTER 2017-12-18 10:34 | Outpatient (RCR) | payer MEDICARE ==
[2017-12-12 09:12] LABS: BASOPHILS # (AUTO) 0.1 10^3/uL (0.0-0.1); BASOPHILS % (AUTO) 1 % (0-10); EOSINOPHILS # (AUTO) 0.2 10^3/uL (0.0-0.3); EOSINOPHILS % (AUTO) 4 % (0-10); HEMATOCRIT 42 % (35-52); HEMOGLOBIN 14.1 G/DL (11.5-16.0); LYMPHOCYTES # (AUTO) 1.9 X 10^3 (1.0-4.0); LYMPHOCYTES % (AUTO) 29 % (12-44); MEAN CORPUSCULAR HEMOGLOBIN 33 PG (25-34); MEAN CORPUSCULAR HGB CONC 34 G/DL (32-36); MEAN CORPUSCULAR VOLUME 97 FL (80-99); MEAN PLATELET VOLUME 10.8 FL (7.4-10.4); MONOCYTES # (AUTO) 0.9 X 10^3 (0.0-1.0); MONOCYTES % (AUTO) 13 % (0-12); NEUTROPHILS # (AUTO) 3.6 X 10^3 (1.8-7.8); NEUTROPHILS % (AUTO) 54 % (42-75); PLATELET COUNT 274 10^3/uL (130-400); WHITE BLOOD COUNT 6.6 10^3/uL (4.3-11.0)
== END 2018-03-12 | disposition home or self-care (01) ==
LOC: ONC 10:34
PROVIDERS: ATTEND Internal Medicine Hematology & Oncology
DX: C78.89 Secondary malignant neoplasm of other digestive organs (principal); Z85.038 Personal history of other malignant neoplasm of large intestine; E55.9 Vitamin D deficiency, unspecified; Z90.49 Acquired absence of other specified parts of digestive tract; Z79.899 Other long term (current) drug therapy; Z90.81 Acquired absence of spleen
CPT/HCPCS: 36415; 82378; 85025; 99213

== ENCOUNTER → 2018-05-01 | Outpatient (CLI) | payer MEDICARE | LOC: CARD 09:42 | PROVIDERS: ATTEND Internal Medicine Cardiovascular Disease | DX: I10 Essential (primary) hypertension (principal); I27.20 Pulmonary hypertension, unspecified; I47.1 Supraventricular tachycardia; R73.01 Impaired fasting glucose | CPT/HCPCS: 93306 ==

== ENCOUNTER 2018-06-07 12:18 | Outpatient (RCR) | payer MEDICARE ==
[2018-03-13 12:07] LABS: BASOPHILS # (AUTO) 0.1 10^3/uL (0.0-0.1); BASOPHILS % (AUTO) 1 % (0-10); EOSINOPHILS # (AUTO) 0.2 10^3/uL (0.0-0.3); EOSINOPHILS % (AUTO) 3 % (0-10); HEMATOCRIT 43 % (35-52); HEMOGLOBIN 14.6 G/DL (11.5-16.0); LYMPHOCYTES # (AUTO) 1.8 X 10^3 (1.0-4.0); LYMPHOCYTES % (AUTO) 21 % (12-44); MEAN CORPUSCULAR HEMOGLOBIN 33 PG (25-34); MEAN CORPUSCULAR HGB CONC 34 G/DL (32-36); MEAN CORPUSCULAR VOLUME 98 FL (80-99); MEAN PLATELET VOLUME 10.2 FL (7.4-10.4); MONOCYTES # (AUTO) 1.1 X 10^3 (0.0-1.0); MONOCYTES % (AUTO) 12 % (0-12); NEUTROPHILS # (AUTO) 5.6 X 10^3 (1.8-7.8); NEUTROPHILS % (AUTO) 64 % (42-75); PLATELET COUNT 304 10^3/uL (130-400); RED CELL DISTRIBUTION WIDTH 12.3 % (10.0-14.5); WHITE BLOOD COUNT 8.8 10^3/uL (4.3-11.0)
[2018-03-13 12:26] LABS: ALANINE AMINOTRANSFERASE 20 U/L (0-55); ALKALINE PHOSPHATASE 71 U/L (40-136); BILIRUBIN,TOTAL 0.5 MG/DL (0.1-1.0); BUN/CREATININE RATIO 21; CALCIUM 9.5 MG/DL (8.5-10.1); CARBON DIOXIDE 27 MMOL/L (21-32); CHLORIDE 101 MMOL/L (98-107); CREATININE SERUM 0.85 MG/DL (0.60-1.30); GFR ESTIMATED > 60; GLUCOSE 73 MG/DL (70-105); POTASSIUM 4.5 MMOL/L (3.6-5.0); SODIUM 137 MMOL/L (135-145); TOTAL PROTEIN 7.3 GM/DL (6.4-8.2)
[2018-06-07 12:39] LABS: BASOPHILS # (AUTO) 0.1 10^3/uL (0.0-0.1); BASOPHILS % (AUTO) 1 % (0-10); EOSINOPHILS # (AUTO) 0.1 10^3/uL (0.0-0.3); EOSINOPHILS % (AUTO) 2 % (0-10); HEMATOCRIT 43 % (35-52); HEMOGLOBIN 14.5 G/DL (11.5-16.0); LYMPHOCYTES # (AUTO) 1.6 X 10^3 (1.0-4.0); LYMPHOCYTES % (AUTO) 22 % (12-44); MEAN CORPUSCULAR HEMOGLOBIN 33 PG (25-34); MEAN CORPUSCULAR HGB CONC 34 G/DL (32-36); MEAN CORPUSCULAR VOLUME 98 FL (80-99); MEAN PLATELET VOLUME 10.6 FL (7.4-10.4); MONOCYTES # (AUTO) 1.5 X 10^3 (0.0-1.0); MONOCYTES % (AUTO) 20 % (0-12); NEUTROPHILS # (AUTO) 4.1 X 10^3 (1.8-7.8); NEUTROPHILS % (AUTO) 55 % (42-75); PLATELET COUNT 248 10^3/uL (130-400); RED CELL DISTRIBUTION WIDTH 12.5 % (10.0-14.5); WHITE BLOOD COUNT 7.4 10^3/uL (4.3-11.0)
== END 2018-06-11 | disposition home or self-care (01) ==
LOC: ONC 12:18
PROVIDERS: ATTEND Internal Medicine Hematology & Oncology
DX: C78.89 Secondary malignant neoplasm of other digestive organs (principal); Z85.038 Personal history of other malignant neoplasm of large intestine; E55.9 Vitamin D deficiency, unspecified; Z90.49 Acquired absence of other specified parts of digestive tract; Z79.899 Other long term (current) drug therapy; Z90.81 Acquired absence of spleen
CPT/HCPCS: 36415; 80053; 82378; 85025

== ENCOUNTER → 2018-06-07 | Outpatient (CLI) | payer MEDICARE ==
[2018-06-07 12:58] LABS: ALBUMIN 4.1 GM/DL (3.2-4.5); BILIRUBIN,TOTAL 0.7 MG/DL (0.1-1.0); CALCIUM 9.5 MG/DL (8.5-10.1); CREATININE SERUM 1.05 MG/DL (0.60-1.30); POTASSIUM 4.8 MMOL/L (3.6-5.0); TOTAL PROTEIN 7.3 GM/DL (6.4-8.2)
== END ==
LOC: LAB 12:16
DX: E78.2 Mixed hyperlipidemia (principal); R53.83 Other fatigue; E55.9 Vitamin D deficiency, unspecified; D51.9 Vitamin B12 deficiency anemia, unspecified
CPT/HCPCS: 36415; 80053; 80061; 82306; 82607; 84443

== ENCOUNTER → 2018-06-12 | Outpatient (CLI) | payer MEDICARE ==
--- NOTE | 2018-06-12 13:46 | Diagnostic Imaging Report ---
INDICATION: COUGH COMPARISON: 04/11/2013. FINDINGS: Frontal and lateral views of the chest demonstrate normal heart size and pulmonary vascularity. The lungs are clear. There are no signs of infiltrate, pleural effusions or pneumothoraces. The visualized osseous structures show no acute abnormalities. Calcified aortic atherosclerosis is noted. IMPRESSION: 1. No acute process. No signs of infiltrates, effusions or pneumothoraces. Dictated by: Dictated on workstation # [id number]
== END ==
LOC: RAD 10:47
DX: R05 Cough (principal)
CPT/HCPCS: 71046

== ENCOUNTER → 2018-11-26 | Outpatient (CLI) | payer MEDICARE ==
[~2018-11-26] VITALS: Ht 157 cm; Wt 75.0 kg
[~2018-11-26] MED LIST changes: +CATHETER FLUSH 10 ML SYR IV PRN; +REGADENOSON 0.4 MG/5 ML SYR (LEXISCAN) IV ONE
--- NOTE | 2018-11-28 18:37 | STRESS TEST ---
DATE OF SERVICE: 11/26/2018 RESTING AND POST REGADENOSON TECHNETIUM-99M TETROFOSMIN SPECT CT IMAGING ORDERING PHYSICIAN: Dr. Marin. PRIMARY CARE PHYSICIAN: Dr. Ma. CLINICAL DIAGNOSES: Shortness of breath, hypertension, hyperlipidemia. Baseline images were carried out after injection of 10.6 mCi of technetium-99m Tetrofosmin. This was followed by 0.4 mg regadenoson and 30.2 mCi of technetium-99m Tetrofosmin for stress imaging. The electrocardiogram showed sinus rhythm at baseline. It did not change significantly with the regadenoson infusion. There was subtle nonspecific ST abnormality throughout the study. The patient did not report any significant symptoms. Review of images at rest and following stress does not indicate any significant perfusion defects consistent with myocardial ischemia or infarction. Gated images show normal global left ventricular systolic function with normal regional wall motion. Left ventricular ejection fraction is calculated to be 67%. Left ventricular end-diastolic volume is 42 mL. TID is absent (0.98). CONCLUSIONS: 1. No evidence of any significant myocardial ischemia or infarction on this study. 2. Normal regional wall motion. 3. Normal global left ventricular systolic function with a calculated ejection fraction of 67%. Job ID: [id number] DocumentID: [id number] Dictated Date: 11/28/2018 17:40:27 Thermal Cutter Hand Date: 11/28/2018 18:36:37 Dictated By: JAYJAY MARIN MD, MA, FACP, FACC,
== END ==
LOC: CARD 06:50
PROVIDERS: ATTEND Internal Medicine Cardiovascular Disease
DX: C18.6 Malignant neoplasm of descending colon (principal); I10 Essential (primary) hypertension; I27.21 Secondary pulmonary arterial hypertension; E78.5 Hyperlipidemia, unspecified; R73.01 Impaired fasting glucose
CPT/HCPCS: 78452; 93017

== ENCOUNTER → 2018-12-19 | Outpatient (CLI) | payer MEDICARE ==
[~2018-12-19] MED LIST changes: -CATHETER FLUSH 10 ML SYR IV PRN; -REGADENOSON 0.4 MG/5 ML SYR (LEXISCAN) IV ONE
[2018-12-19 08:54] LABS: BASOPHILS # (AUTO) 0.1 10^3/uL (0.0-0.1); BASOPHILS % (AUTO) 1 % (0-10); EOSINOPHILS # (AUTO) 0.2 10^3/uL (0.0-0.3); EOSINOPHILS % (AUTO) 3 % (0-10); HEMATOCRIT 43 % (35-52); HEMOGLOBIN 14.3 G/DL (11.5-16.0); LYMPHOCYTES # (AUTO) 1.5 X 10^3 (1.0-4.0); LYMPHOCYTES % (AUTO) 28 % (12-44); MEAN CORPUSCULAR HEMOGLOBIN 32 PG (25-34); MEAN CORPUSCULAR HGB CONC 34 G/DL (32-36); MEAN CORPUSCULAR VOLUME 96 FL (80-99); MEAN PLATELET VOLUME 10.5 FL (7.4-10.4); MONOCYTES # (AUTO) 0.7 X 10^3 (0.0-1.0); MONOCYTES % (AUTO) 13 % (0-12); NEUTROPHILS % (AUTO) 55 % (42-75); PLATELET COUNT 259 10^3/uL (130-400); RED CELL DISTRIBUTION WIDTH 12.5 % (10.0-14.5); WHITE BLOOD COUNT 5.4 10^3/uL (4.3-11.0)
[2018-12-19 09:16] LABS: ALANINE AMINOTRANSFERASE 24 U/L (0-55); ALBUMIN 3.9 GM/DL (3.2-4.5); ALKALINE PHOSPHATASE 70 U/L (40-136); BILIRUBIN,TOTAL 0.7 MG/DL (0.1-1.0); BUN/CREATININE RATIO 12; CALCIUM 9.4 MG/DL (8.5-10.1); CARBON DIOXIDE 23 MMOL/L (21-32); CHLORIDE 101 MMOL/L (98-107); CREATININE SERUM 0.84 MG/DL (0.60-1.30); GFR ESTIMATED > 60; GLUCOSE 106 MG/DL (70-105); POTASSIUM 4.8 MMOL/L (3.6-5.0); SODIUM 135 MMOL/L (135-145); TOTAL PROTEIN 6.9 GM/DL (6.4-8.2)
[2018-12-20 10:21] LABS: CHOLESTEROL 171 MG/DL (< 200); HDL CHOLESTEROL 52 MG/DL (40-60); TRIGLYCERIDES 115 MG/DL (<150); VLDL CHOLESTEROL 23 MG/DL (5-40)
== END ==
LOC: LAB 08:46
DX: E78.2 Mixed hyperlipidemia (principal); R53.83 Other fatigue; R53.81 Other malaise
CPT/HCPCS: 36415; 80053; 80061; 84443; 85025

== ENCOUNTER 2018-12-26 09:56 | Outpatient (RCR) | payer MEDICARE ==
[2018-12-19 08:56] LABS: BASOPHILS # (AUTO) 0.1 10^3/uL (0.0-0.1); BASOPHILS % (AUTO) 1 % (0-10); EOSINOPHILS # (AUTO) 0.2 10^3/uL (0.0-0.3); EOSINOPHILS % (AUTO) 3 % (0-10); HEMATOCRIT 43 % (35-52); HEMOGLOBIN 14.3 G/DL (11.5-16.0); LYMPHOCYTES # (AUTO) 1.5 X 10^3 (1.0-4.0); LYMPHOCYTES % (AUTO) 28 % (12-44); MEAN CORPUSCULAR HEMOGLOBIN 32 PG (25-34); MEAN CORPUSCULAR HGB CONC 34 G/DL (32-36); MEAN CORPUSCULAR VOLUME 96 FL (80-99); MEAN PLATELET VOLUME 10.5 FL (7.4-10.4); MONOCYTES # (AUTO) 0.7 X 10^3 (0.0-1.0); MONOCYTES % (AUTO) 13 % (0-12); NEUTROPHILS % (AUTO) 55 % (42-75); PLATELET COUNT 259 10^3/uL (130-400); RED CELL DISTRIBUTION WIDTH 12.5 % (10.0-14.5); WHITE BLOOD COUNT 5.4 10^3/uL (4.3-11.0)
[2018-12-19 09:49] LABS: CARBON DIOXIDE 23 MMOL/L (21-32); CHLORIDE 101 MMOL/L (98-107); POTASSIUM 4.8 MMOL/L (3.6-5.0); SODIUM 135 MMOL/L (135-145)
[2018-12-19 09:50] LABS: ALANINE AMINOTRANSFERASE 24 U/L (0-55); ALBUMIN 3.9 GM/DL (3.2-4.5); ALKALINE PHOSPHATASE 70 U/L (40-136); BILIRUBIN,TOTAL 0.7 MG/DL (0.1-1.0); BUN/CREATININE RATIO 12; CALCIUM 9.4 MG/DL (8.5-10.1); CREATININE SERUM 0.84 MG/DL (0.60-1.30); GFR ESTIMATED > 60; GLUCOSE 106 MG/DL (70-105); TOTAL PROTEIN 6.9 GM/DL (6.4-8.2)
[~2018-12-26 09:56] MED LIST changes: +ASCO-413 PO; -ASCO500T5 PO; -TRAM50TA2 PO; +TRM50T PO
== END 2019-03-19 | disposition home or self-care (01) ==
LOC: ONC 09:56
PROVIDERS: ATTEND Internal Medicine Hematology & Oncology
DX: E55.9 Vitamin D deficiency, unspecified (principal); Z90.49 Acquired absence of other specified parts of digestive tract; Z79.899 Other long term (current) drug therapy; Z90.81 Acquired absence of spleen; C80.1 Malignant (primary) neoplasm, unspecified; C78.89 Secondary malignant neoplasm of other digestive organs
CPT/HCPCS: 36415; 80053; 82378; 85025; 99213

== ENCOUNTER → 2019-06-19 | Outpatient (CLI) | payer MEDICARE ==
[~2019-06-19] MED LIST changes: -ASCO-413 PO; +ASCO500T71 PO; -MONT10TA24 PO; +MONT10TA26 PO; -TRAZ-190 PO; +TRAZ-227 PO
[2019-06-19 08:58] LABS: BASOPHILS # (AUTO) 0.1 10^3/uL (0.0-0.1); BASOPHILS % (AUTO) 1 % (0-10); EOSINOPHILS # (AUTO) 0.3 10^3/uL (0.0-0.3); EOSINOPHILS % (AUTO) 4 % (0-10); HEMATOCRIT 43 % (35-52); HEMOGLOBIN 14.5 G/DL (11.5-16.0); LYMPHOCYTES # (AUTO) 2.2 X 10^3 (1.0-4.0); LYMPHOCYTES % (AUTO) 34 % (12-44); MEAN CORPUSCULAR HEMOGLOBIN 33 PG (25-34); MEAN CORPUSCULAR HGB CONC 34 G/DL (32-36); MEAN CORPUSCULAR VOLUME 98 FL (80-99); MEAN PLATELET VOLUME 10.8 FL (7.4-10.4); MONOCYTES # (AUTO) 0.8 X 10^3 (0.0-1.0); MONOCYTES % (AUTO) 13 % (0-12); NEUTROPHILS % (AUTO) 47 % (42-75); PLATELET COUNT 248 10^3/uL (130-400); RED CELL DISTRIBUTION WIDTH 12.4 % (10.0-14.5); WHITE BLOOD COUNT 6.4 10^3/uL (4.3-11.0)
[2019-06-19 09:34] LABS: ALANINE AMINOTRANSFERASE 23 U/L (0-55); ALBUMIN 3.9 GM/DL (3.2-4.5); ALKALINE PHOSPHATASE 58 U/L (40-136); BILIRUBIN,TOTAL 0.4 MG/DL (0.1-1.0); BUN/CREATININE RATIO 20; CALCIUM 8.9 MG/DL (8.5-10.1); CARBON DIOXIDE 24 MMOL/L (21-32); CHLORIDE 104 MMOL/L (98-107); CHOLESTEROL 197 MG/DL (< 200); CREATININE SERUM 0.89 MG/DL (0.60-1.30); GFR ESTIMATED > 60; GLUCOSE 99 MG/DL (70-105); HDL CHOLESTEROL 54 MG/DL (40-60); POTASSIUM 4.6 MMOL/L (3.6-5.0); SODIUM 138 MMOL/L (135-145); TOTAL PROTEIN 7.2 GM/DL (6.4-8.2); TRIGLYCERIDES 94 MG/DL (<150); VLDL CHOLESTEROL 19 MG/DL (5-40)
== END ==
LOC: LAB 08:44
DX: E78.2 Mixed hyperlipidemia (principal); R53.83 Other fatigue
CPT/HCPCS: 36415; 80053; 80061; 84443; 85025

== ENCOUNTER 2019-06-26 09:55 | Outpatient (RCR) | payer MEDICARE ==
[2019-06-19 08:41] LABS: BASOPHILS # (AUTO) 0.1 10^3/uL (0.0-0.1); BASOPHILS % (AUTO) 1 % (0-10); EOSINOPHILS # (AUTO) 0.3 10^3/uL (0.0-0.3); EOSINOPHILS % (AUTO) 4 % (0-10); HEMATOCRIT 43 % (35-52); HEMOGLOBIN 14.5 G/DL (11.5-16.0); LYMPHOCYTES # (AUTO) 2.2 X 10^3 (1.0-4.0); LYMPHOCYTES % (AUTO) 34 % (12-44); MEAN CORPUSCULAR HEMOGLOBIN 33 PG (25-34); MEAN CORPUSCULAR HGB CONC 34 G/DL (32-36); MEAN CORPUSCULAR VOLUME 98 FL (80-99); MEAN PLATELET VOLUME 10.8 FL (7.4-10.4); MONOCYTES # (AUTO) 0.8 X 10^3 (0.0-1.0); MONOCYTES % (AUTO) 13 % (0-12); NEUTROPHILS % (AUTO) 47 % (42-75); PLATELET COUNT 248 10^3/uL (130-400); RED CELL DISTRIBUTION WIDTH 12.4 % (10.0-14.5); WHITE BLOOD COUNT 6.4 10^3/uL (4.3-11.0)
[2019-06-19 09:12] LABS: ALANINE AMINOTRANSFERASE 23 U/L (0-55); ALBUMIN 3.9 GM/DL (3.2-4.5); ALKALINE PHOSPHATASE 58 U/L (40-136); BILIRUBIN,TOTAL 0.4 MG/DL (0.1-1.0); BUN/CREATININE RATIO 20; CALCIUM 8.9 MG/DL (8.5-10.1); CARBON DIOXIDE 24 MMOL/L (21-32); CHLORIDE 104 MMOL/L (98-107); CREATININE SERUM 0.89 MG/DL (0.60-1.30); GFR ESTIMATED > 60; GLUCOSE 99 MG/DL (70-105); POTASSIUM 4.6 MMOL/L (3.6-5.0); SODIUM 138 MMOL/L (135-145); TOTAL PROTEIN 7.2 GM/DL (6.4-8.2)
== END 2019-09-17 | disposition home or self-care (01) ==
LOC: ONC 09:55
PROVIDERS: ATTEND Internal Medicine Hematology & Oncology
DX: E55.9 Vitamin D deficiency, unspecified (principal); Z90.49 Acquired absence of other specified parts of digestive tract; Z79.899 Other long term (current) drug therapy; Z90.81 Acquired absence of spleen; C80.1 Malignant (primary) neoplasm, unspecified; C78.89 Secondary malignant neoplasm of other digestive organs
CPT/HCPCS: 80053; 82378; 85025; 99213

== ENCOUNTER → 2019-12-12 | Outpatient (CLI) | payer MEDICARE ==
[2019-12-12 11:17] LABS: CHOLESTEROL 183 MG/DL (< 200); HDL CHOLESTEROL 51 MG/DL (40-60); TRIGLYCERIDES 129 MG/DL (<150); VLDL CHOLESTEROL 26 MG/DL (5-40)
== END ==
LOC: ONC 10:20
DX: E78.2 Mixed hyperlipidemia (principal); R53.83 Other fatigue
CPT/HCPCS: 36415; 80061

== ENCOUNTER 2019-12-17 10:23 | Outpatient (RCR) | payer MEDICARE ==
[2019-12-12 10:49] LABS: BASOPHILS # (AUTO) 0.1 10^3/uL (0.0-0.1); BASOPHILS % (AUTO) 1 % (0-10); EOSINOPHILS # (AUTO) 0.3 10^3/uL (0.0-0.3); EOSINOPHILS % (AUTO) 4 % (0-10); HEMATOCRIT 42 % (35-52); LYMPHOCYTES # (AUTO) 1.9 10^3/uL (1.0-4.0); LYMPHOCYTES % (AUTO) 26 % (12-44); MEAN CORPUSCULAR HEMOGLOBIN 33 pg (25-34); MEAN CORPUSCULAR HGB CONC 34 g/dL (32-36); MEAN CORPUSCULAR VOLUME 99 fL (80-99); MEAN PLATELET VOLUME 10.6 fL (9.0-12.2); MONOCYTES % (AUTO) 13 % (0-12); NEUTROPHILS % (AUTO) 55 % (42-75); PLATELET COUNT 270 10^3/uL (130-400); WHITE BLOOD COUNT 7.2 10^3/uL (4.3-11.0)
[2019-12-12 11:06] LABS: ALANINE AMINOTRANSFERASE 24 U/L (0-55); ALBUMIN 3.8 GM/DL (3.2-4.5); ALKALINE PHOSPHATASE 71 U/L (40-136); BILIRUBIN,TOTAL 0.5 MG/DL (0.1-1.0); BUN/CREATININE RATIO 13; CALCIUM 8.7 MG/DL (8.5-10.1); CARBON DIOXIDE 22 MMOL/L (21-32); CHLORIDE 105 MMOL/L (98-107); CREATININE SERUM 0.82 MG/DL (0.60-1.30); GFR ESTIMATED > 60; GLUCOSE 96 MG/DL (70-105); POTASSIUM 4.7 MMOL/L (3.6-5.0); SODIUM 137 MMOL/L (135-145); TOTAL PROTEIN 7.1 GM/DL (6.4-8.2)
== END 2019-12-24 | disposition home or self-care (01) ==
LOC: ONC 10:23
PROVIDERS: ATTEND Internal Medicine Hematology & Oncology
DX: C18.6 Malignant neoplasm of descending colon (principal); C78.89 Secondary malignant neoplasm of other digestive organs; Z79.899 Other long term (current) drug therapy; Z90.81 Acquired absence of spleen; Z90.49 Acquired absence of other specified parts of digestive tract
CPT/HCPCS: 80053; 82378; 85025; 99213

== ENCOUNTER 2020-05-17 10:46 | Outpatient (RCR) | payer MEDICARE ==
[~2020-05-17 10:46] MED LIST changes: -MONT10TA26 PO; +MONT10TA32 PO
== END 2020-08-15 | disposition home or self-care (01) ==
LOC: ONC 10:46
PROVIDERS: ATTEND Internal Medicine Hematology & Oncology
DX: C18.6 Malignant neoplasm of descending colon (principal); C78.89 Secondary malignant neoplasm of other digestive organs; I10 Essential (primary) hypertension; E66.9 Obesity, unspecified; M81.0 Age-related osteoporosis without current pathological fracture; E78.00 Pure hypercholesterolemia, unspecified; Z68.30 Body mass index [BMI] 30.0-30.9, adult; Z90.49 Acquired absence of other specified parts of digestive tract; Z79.899 Other long term (current) drug therapy; Z90.81 Acquired absence of spleen; Z79.82 Long term (current) use of aspirin
CPT/HCPCS: 82378

== ENCOUNTER → 2020-12-08 | Outpatient (CLI) | payer MEDICARE ==
[2020-12-08 08:56] LABS: BASOPHILS # (AUTO) 0.1 10^3/uL (0.0-0.1); BASOPHILS % (AUTO) 1 % (0-10); EOSINOPHILS # (AUTO) 0.3 10^3/uL (0.0-0.3); EOSINOPHILS % (AUTO) 3 % (0-10); HEMATOCRIT 42 % (35-52); HEMOGLOBIN 14.3 g/dL (11.5-16.0); LYMPHOCYTES # (AUTO) 2.1 10^3/uL (1.0-4.0); LYMPHOCYTES % (AUTO) 28 % (12-44); MEAN CORPUSCULAR HEMOGLOBIN 34 pg (25-34); MEAN CORPUSCULAR HGB CONC 34 g/dL (32-36); MEAN CORPUSCULAR VOLUME 99 fL (80-99); MEAN PLATELET VOLUME 10.4 fL (9.0-12.2); MONOCYTES # (AUTO) 0.9 10^3/uL (0.0-1.0); MONOCYTES % (AUTO) 12 % (0-12); NEUTROPHILS # (AUTO) 4.1 10^3/uL (1.8-7.8); NEUTROPHILS % (AUTO) 55 % (42-75); PLATELET COUNT 260 10^3/uL (130-400); WHITE BLOOD COUNT 7.5 10^3/uL (4.3-11.0)
[2020-12-08 09:35] LABS: ALBUMIN 3.6 GM/DL (3.2-4.5); BILIRUBIN,TOTAL 0.7 MG/DL (0.1-1.0); CALCIUM 9.6 MG/DL (8.5-10.1); CREATININE SERUM 0.89 MG/DL (0.60-1.30); POTASSIUM 4.5 MMOL/L (3.6-5.0)
== END ==
LOC: LAB 08:35
DX: E78.2 Mixed hyperlipidemia (principal); E03.9 Hypothyroidism, unspecified
CPT/HCPCS: 36415; 80053; 80061; 84443; 85025

== ENCOUNTER 2021-02-09 09:51 | Outpatient (RCR) | payer MEDICARE ==
[2020-12-08 08:54] LABS: BASOPHILS # (AUTO) 0.1 10^3/uL (0.0-0.1); BASOPHILS % (AUTO) 1 % (0-10); EOSINOPHILS # (AUTO) 0.3 10^3/uL (0.0-0.3); EOSINOPHILS % (AUTO) 4 % (0-10); HEMATOCRIT 42 % (35-52); HEMOGLOBIN 14.3 g/dL (11.5-16.0); LYMPHOCYTES # (AUTO) 2.2 10^3/uL (1.0-4.0); LYMPHOCYTES % (AUTO) 29 % (12-44); MEAN CORPUSCULAR HEMOGLOBIN 34 pg (25-34); MEAN CORPUSCULAR HGB CONC 34 g/dL (32-36); MEAN CORPUSCULAR VOLUME 99 fL (80-99); MEAN PLATELET VOLUME 10.3 fL (9.0-12.2); MONOCYTES # (AUTO) 0.9 10^3/uL (0.0-1.0); MONOCYTES % (AUTO) 12 % (0-12); NEUTROPHILS # (AUTO) 4.1 10^3/uL (1.8-7.8); NEUTROPHILS % (AUTO) 55 % (42-75); PLATELET COUNT 260 10^3/uL (130-400); WHITE BLOOD COUNT 7.5 10^3/uL (4.3-11.0)
[2020-12-08 09:13] LABS: ALBUMIN 3.6 GM/DL (3.2-4.5); BILIRUBIN,TOTAL 0.6 MG/DL (0.1-1.0); CALCIUM 9.6 MG/DL (8.5-10.1); CREATININE SERUM 0.91 MG/DL (0.60-1.30); POTASSIUM 4.6 MMOL/L (3.6-5.0); TOTAL PROTEIN 6.9 GM/DL (6.4-8.2)
[~2021-02-09 09:51] MED LIST changes: +MONT-40 PO; -MONT10TA32 PO
== END 2021-02-11 | disposition home or self-care (01) ==
LOC: ONC 09:51
PROVIDERS: ATTEND Internal Medicine Hematology & Oncology
DX: C18.6 Malignant neoplasm of descending colon (principal); I10 Essential (primary) hypertension; I35.1 Nonrheumatic aortic (valve) insufficiency; E78.2 Mixed hyperlipidemia; I65.23 Occlusion and stenosis of bilateral carotid arteries; I27.20 Pulmonary hypertension, unspecified; E78.00 Pure hypercholesterolemia, unspecified; E66.9 Obesity, unspecified; M81.0 Age-related osteoporosis without current pathological fracture; Z68.31 Body mass index [BMI] 31.0-31.9, adult; Z90.49 Acquired absence of other specified parts of digestive tract; Z90.81 Acquired absence of spleen; Z79.82 Long term (current) use of aspirin; Z79.899 Other long term (current) drug therapy
CPT/HCPCS: 80053; 82378; 85025; 99213

== ENCOUNTER 2021-12-02 09:38 | Emergency (ER) | payer MEDICARE ==
[~2021-12-02] VITALS: Ht 157 cm; Wt 77.1 kg
--- NOTE | 2021-12-02 09:53 | ED Neurological Problem ---
General Chief Complaint: Upper Extremity Stated Complaint: LEFT ARM TINGLING Source: patient Exam Limitations: no limitations History of Present Illness Date Seen by Provider: Dec 02, 2021 Time Seen by Provider: 09:52 Initial Comments Patient is a 76-year-old female who presents to the emergency room with a chief complaint of a "pulling sensation" in her left forearm. Patient states that she has had it off and on for "years" she states over the course of the last week it has occurred a little bit more frequently. She states when she "rubs it" it feels better. Nothing makes it feel any worse. She denies numbness to the extremity or weakness to the extremity. No associated symptoms of nausea, shortness of breath, chest pain or sweating. She has no history of coronary artery disease. She is 8 years from her last colon cancer experience. She called her digital account coordinator office, Dr. Marin this morning to be seen in clinic but he told her to come to the emergency room. She states her primary care physician does not know about this issue. No recent fevers or chills, no rashes. No problems with bowel or bladder. She states the last episode of this "sensation" was at 730 this morning when she woke up. She does not have any issues currently. All other review of systems reviewed and negative except as stated. Severity: mild Allergies and Home Medications Allergies Coded Allergies: No Known Drug Allergies (Unverified , 02/07/17) Patient Home Medication List Home Medication List Reviewed: Yes Ascorbic Acid (Vitamin C) 500 Mg Tab.chew, 500 MG PO DAILY, (Reported) Entered as Reported by: ACNDACE WEEKS on 02/07/171317 Aspirin (Aspir 81) 81 Mg Tablet.dr, 81 MG PO DAILY, (Reported) Entered as Reported by: CANDACE WEEKS on 02/07/171317 Atorvastatin Calcium (Atorvastatin Calcium) 20 Mg Tablet, 20 MG PO DAILY, (Reported) Entered as Reported by: CANDACE WEEKS on 02/07/171317 Cholecalciferol (Vitamin D) 5,000 Unit Capsule, 5,000 UNIT PO DAILY, (Reported) Entered as Reported by: CANDACE WEEKS on 02/07/171317 Metoprolol Succinate (Metoprolol Succinate) 200 Mg Tab.er.24h, 200 MG PO HS, (Reported) Entered as Reported by: CANDACE WEEKS on 09/03/17 1037 Tramadol HCl (Tramadol HCl) 50 Mg Tablet, 50 MG PO Q12H PRN for PAIN-MILD TO MODERATE Prescribed by: MANOLO NOONAN on 10/17/17 0900 Trazodone HCl (Trazodone HCl) 100 Mg Tablet, 50 MG PO HS, (Reported) Entered as Reported by: CANDACE WEEKS on 09/03/17 1037 Review of Systems Review of Systems Constitutional: see HPI Eyes: No Symptoms Reported Ears, Nose, Mouth, Throat: no symptoms reported Respiratory: no symptoms reported Cardiovascular: no symptoms reported Gastrointestinal: no symptoms reported Genitourinary: no symptoms reported Musculoskeletal: muscle pain ("pain" in left forearm ("pulling sensation")) Skin: no symptoms reported All Other Systems Reviewed Negative Unless Noted: Yes Past Ktqytnj-Yqswgx-Hdkiei Hx Immunizations Up To Date Tetanus Booster (TDap): Unknown PED Vaccines UTD: No Seasonal Allergies Seasonal Allergies: Yes (MILD) Past Medical History Surgeries: Yes Bowel Surgery, Section, Hysterectomy Respiratory: No Cardiac: Yes High Cholesterol, Hypertension Neurological: Yes Neuropathy Reproductive Disorders: No Sexually Transmitted Disease: No HIV/AIDS: No Gastrointestinal: No Musculoskeletal: Yes Arthritis Endocrine: No Loss of Vision: Bilateral Hearing Impairment: Denies Cancer: Yes Colon Did You Recieve Any Treatments: Yes What Type of Treatment Did You: Chemotherapy, Surgical Intervention Adverse Reaction/Blood Tranf: No (N/A) Physical Exam Vital Signs Vital Signs - First Documented 12/02/21 09:54 Temp 36.7 Pulse 56 Resp 26 B/P (MAP) 129/101 (110) Pulse Ox 95 Capillary Refill : Height, Weight, BMI Height: 5'2.00" Weight: 163lbs. 0.0oz. [id number]; 30.42 BMI Method: General Appearance: WD/WN, no apparent distress HEENT: PERRL/EOMI Neck: normal inspection Respiratory: lungs clear, normal breath sounds, no respiratory distress, no accessory muscle use Cardiovascular: regular rate, rhythm Gastrointestinal: normal bowel sounds, non tender, soft Extremities: normal range of motion, non-tender, normal inspection, no pedal edema, no calf tenderness, normal capillary refill Neurologic/Psychiatric: alert, normal mood/affect, oriented x 3 Crainal Nerves: normal hearing, normal speech, PERRL Coordination/Gait: normal gait Motor/Sensory: no motor deficit, no sensory deficit Skin: normal color, warm/dry Progress/Results/Core Measures Results/Orders Lab Results Laboratory Tests Test 12/02/21 10:23 Range/Units Sodium Level 137 135-145 MMOL/L Potassium Level 4.3 3.6-5.0 MMOL/L Chloride Level 104 98-107 MMOL/L Carbon Dioxide Level 24 21-32 MMOL/L Anion Gap 9 5-14 MMOL/L Blood Urea Nitrogen 14 7-18 MG/DL Creatinine 0.81 0.60-1.30 MG/DL Estimat Glomerular Filtration Rate 75 BUN/Creatinine Ratio 17 Glucose Level 100 70-105 MG/DL Calcium Level 9.1 8.5-10.1 MG/DL My Orders Orders - NGOZI MURDOCK MD Ekg Tracing (12/02/21 10:03) Basic Metabolic Panel (12/02/21 10:03) Vital Signs/I&O 12/02/21 09:54 Temp 36.7 Pulse 56 Resp 26 B/P (MAP) 129/101 (110) Pulse Ox 95 Progress Progress Note : Time: 10:57 Progress Note Patient's EKG is 100% normal. Her serum chemistry is also normal. She has had this complaint of a "pulling sensation" in her left forearm off and on for years. She has no associated symptoms, it is not brought on by exertion, she is not a smoker. She does have a history of hypertension. She is not a diabetic. I have very low clinical suspicion for any type of anginal equivalent. No concern for DVT, infection/nec fasciitis/acute arterial conditions. She does see Dr. Marin. No clinical or objective findings to warrant full cardiac work-up. The clinical scenario is not consistent with a cardiac origin. There is no trauma to the left arm. She is not having any complaints of weakness or strokelike symptoms. Her vital signs are stable. Recommendations for supportive care, continue to massage the area as needed if any new symptoms develop she is instructed to return to the emergency department for reevaluation. Otherwise follow-up with her primary care and Dr. Marin. Initial ECG Impression Date: Dec 02, 2021 Initial ECG Impression Time: 10:18 Initial ECG Rate: 56 Initial ECG Rhythm: Normal Sinus Initial ECG Intervals: Normal Initial ECG Impression: Normal Departure Impression Primary Impression: Left forearm pain Disposition: 01 HOME, SELF-CARE Condition: Stable Departure-Patient Inst. Decision time for Depature: 10:59 Referrals: ROBBIE NUNEZ MD (PCP/Family) Primary Care Physician Patient Instructions: Muscle and Bone Pain (DC) Add. Discharge Instructions: Continue your daily medications as prescribed. Follow up with Dr Nunez to discuss the left arm discomfort. If you develop swelling, redness, increased or prolonged pain - please return to the Emergency Department for re-evaluation. Copy Copies To 1: ROBBIE NUNEZ MD Copies To 2: JAYJAY MARIN MD FACP [facility] NGOZI MURDOCK MD Dec 02, 2021 09:52
[2021-12-02 10:46] LABS: POTASSIUM 4.3 MMOL/L (3.6-5.0)
[2021-12-02 10:48] LABS: CALCIUM 9.1 MG/DL (8.5-10.1)
[2021-12-02 10:52] LABS: CREATININE SERUM 0.81 MG/DL (0.60-1.30)
[2021-12-02 11:11] VITALS: BP 188/87
== END 2021-12-02 11:11 | disposition home or self-care (01) ==
LOC: EDUNIT# 09:38 → ER 09:40
DX: M79.632 Pain in left forearm (principal)
CPT/HCPCS: 36415; 80048; 93005